=== PATIENT | female | born 1945 | race Caucasian/White ===

== ENCOUNTER → 2017-12-08 12:53 | Outpatient (CLI) | payer MEDICARE, OTHER, SELFPAY ==
--- NOTE | 2017-12-08 12:56 | BI_ITS ---
MAMMOGRAPHY - BILATERAL SCREENING REASON FOR EXAM: Female, 72 years old. Routine annual screening examination. PERTINENT HISTORY: Non-contributory. TECHNIQUE: Digital bilateral breast jimy (3D mammographic acquisition) in the CC and MLO projections. 2-D mediolateral oblique (MLO) and craniocaudad (CC) views of both breasts were obtained. CAD: Full Field Digital Mammography with Computer Added Detection was performed. COMPARISON: Comparison is made with prior study dated February 28, 2015 and November 14, 2013. FINDINGS: Breast Composition: The breasts are heterogeneously dense, which may obscure small masses. There are no dominant masses or suspicious calcifications. No other significant abnormalities are identified. There has been no significant change since the prior study. BI/SCREENING MAMM (CAD), BILAT IMPRESSION: Stable bilateral screening mammogram. Yearly follow-up mammogram recommended. (A) ASSESSMENT CATEGORY: BIRADS Category 1: Negative. A letter regarding these results will be sent to the patient by the facility within 30 days. Approximately 10% of breast cancers are not detected by mammography. A normal mammogram should not delay biopsy of a clinically suspicious abnormality. [id number] Electronically Signed: Adelso Busby MD at 15:38 EDT Tel [phone], Service support ,
--- NOTE | 2017-12-08 13:16 | BD_ITS ---
STUDY: DUAL ENERGY X-RAY ABSORPTIOMETRY / DXA REASON FOR EXAM: Female, 72 years old. The patient is postmenopausal. TECHNIQUE: Bone Mineral Density (BMD) measurements of lumbar spine and bilateral hips were obtained. COMPARISON: Comparison is made with prior study dated June 11, 2009. FINDINGS: Lumbar Spine (L1-L4): g/cm2 (1.103) / T-score (-0.6) / Z-score (1.1) Findings are suggestive of normal bone density with a low fracture risk. Left Femur Total: g/cm2 (0.799) / T-score (-1.7) / Z-score (-0.1) Left Femoral Neck: g/cm2 (0.740) / T-score (-2.1) / Z-score (-0.4) Right Femur Total: g/cm2 (0.814) / T-score (-1.5) / Z-score (0.0) Right Femoral Neck: g/cm2 (0.714) / T-score (-2.3) / Z-score (-0.6) The T-Scores on the most recent prior examination were: Lumbar Spine (L1-L4): There has been worsening of bone density since the previous examination. Left Femur Total: which represents a worsening of 8.9%. Right Femur Total: which represents a worsening of 6.1%. BD/DXA BONE DENS W/VERT FX ASMT IMPRESSION: The patient is considered osteopenic as outlined below according to World Harsh Organization (WHO) criteria with a moderate fracture risk. There has been worsening of bone density since the previous examination. Reference Information: The T-score is the number of standard deviations above or below the standard which is normal for young adults at their peak bone mineral density. The World Health Organization (WHO) interprets the T-scores as follows: Above -1 Normal bone density Between -1 and -2.5 Osteopenia Equal to / or below -2.5 Osteoporosis As a practical clinical guideline, osteopenia may be graded as follows: Mild -1 through -1.5 Moderate -1.6 through -2.0 Severe -2.1 through -2.4 The Z-score is the number of standard deviations above or below age-matched controls. A Z-score of less than -1.5 would be considered abnormal. References: 1. NIH Osteoporosis and Related Bone Diseases http://www.osteo.org 2. International Society for Clinical Densitometry http://www.iscd.org 3. National Osteoporosis Foundation http://www.nof.org Electronically Signed: Adelso Busby MD at 12:11 EDT Tel [phone], Service support ,
== END ==
PROVIDERS: Family Provider Family Medicine Geriatric Medicine; PCP Family Medicine Geriatric Medicine; Visit Provider Family Medicine Geriatric Medicine
DX: Z12.31 Encounter for screening mammogram for malignant neoplasm of breast (principal); Z78.0 Asymptomatic menopausal state; M48.50XA Collapsed vertebra, not elsewhere classified, site unspecified, initial encounter for fracture; M85.80 Other specified disorders of bone density and structure, unspecified site
CPT/HCPCS: 77063; 77067; 77085

== ENCOUNTER → 2018-03-22 15:06 | Outpatient (CLI) | payer MEDICARE, OTHER, SELFPAY ==
--- NOTE | 2018-03-22 15:15 | RAD_ITS ---
STUDY: X-RAY - LEFT KNEE REASON FOR EXAM: Female, 73 years old. Chronic left knee pain TECHNIQUE: 4 view(s) of the knee. COMPARISON: None. FINDINGS: Normal visualized distal femur. Normal visualized proximal tibia and fibula. Normal proximal tibiofibular articulation. Minimal narrowing of the medial femorotibial compartment. Normal lateral femorotibial compartment. Normal patellofemoral articulation. There is a soft tissue prominence in the suprapatellar region suggesting a small volume joint effusion. The soft tissue structures are unremarkable. RAD/Knee 4 or More Views IMPRESSION: Minimal degenerative changes and mild effusion. Electronically Signed: Karolina Romero MD at 7:57 EDT , Service support ,
== END ==
PROVIDERS: Family Provider Family Medicine Geriatric Medicine; PCP Family Medicine Geriatric Medicine; Visit Provider Family Medicine Geriatric Medicine
DX: M25.562 Pain in left knee (principal); G89.29 Other chronic pain
CPT/HCPCS: 73564

== ENCOUNTER → 2018-09-11 16:30 | Outpatient (CLI) | payer MEDICARE, OTHER, SELFPAY | PROVIDERS: Family Provider Family Medicine Geriatric Medicine; PCP Family Medicine Geriatric Medicine; Referring Provider Family Medicine Geriatric Medicine; Visit Provider Family Medicine Geriatric Medicine | DX: R69 Illness, unspecified (principal) ==

== ENCOUNTER → 2018-09-29 11:24 | Outpatient (CLI) | payer MEDICARE, OTHER, SELFPAY ==
[2018-09-29 13:12] LABS: Absolute Lymphocyte Count 1.91 X10^3/ul (0.83-4.51); Absolute Neutrophil Count 3.7 X10^3/uL (2.0-7.7); Basophil# 0.02 X10^3/uL; Basophil% 0.3 % (0-1); Eosinophil# 0.11 X10^3/uL; Eosinophils% 1.7 % (0-5); Hematocrit 42.6 % (37-47); Hemoglobin 13.9 g/dl (12.0-15.0); Lymphocyte # 1.91 X10^3/ul (4.0); Lymphocyte % 30.1 % (19-41); Mean Corp Hgb Conc 32.6 g/gl (32-36); Mean Corpuscular Hgb 29.5 pg (27.0-32.0); Mean Corpuscular Volume 90.4 fL (81-99); Monocyte# 0.62 X10^3/uL; Monocyte% 9.8 % (0-10); Neutrophil # 3.68 X10^3/uL (2.7-7.7); Neutrophil % 57.9 % (47-70); POSITIVE COUNT NO; POSITIVE DIFFERENTIAL NO; POSITIVE MORPHOLOGY NO; Platelet Count 224 K/mm3 (150-450); RBC Distribution Width CV 14.4 % (11.6-14.6); RBC Distribution Width SD 47.5 fl (35.1-43.9); Red Blood Count 4.71 M/mm3 (4.2-5.4); White Blood Count 6.4 K/mm3 (4.4-11.0)
[2018-09-29 13:26] LABS: AST(SGOT) 37 U/L (15-37); Alanine Aminotransfer ALT/SGPT 54 U/L (13-56); Albumin, Serum 3.3 g/dL (3.2-5.0); Alkaline Phosphatase 95 U/L (45-117); Anion Gap 9 (5-15); BUN 16 mg/dL (7-18); BUN/Creat Ratio 19.6 RATIO (10-20); Calcium,Total 8.6 mg/dL (8.5-10.1); Chloride 110 mmol/L (98-107); Creatinine, Serum 0.82 mg/dL (0.55-1.02); EST Glomerular Filtration Rate 73 mL/min (>60); Est Glom Filt Rate - Afr Amer 88 mL/min (>60); Globulin 3.4 g/dL (2.2-4.2); Glucose 83 mg/dL (74-106); Protein, Total 6.7 g/dL (6.4-8.2); Sodium Level 143 mmol/L (136-145); Thyroid Stim Hormone (TSH) 1.41 uIU/mL (0.358-3.74)
== END ==
PROVIDERS: Family Provider Family Medicine Geriatric Medicine; PCP Family Medicine Geriatric Medicine; Visit Provider Family Medicine Geriatric Medicine
DX: I10 Essential (primary) hypertension (principal); E55.9 Vitamin D deficiency, unspecified
CPT/HCPCS: 36415; 80053; 82306; 84443; 85025

== ENCOUNTER → 2019-06-27 10:50 | Outpatient (CLI) | payer MEDICARE, OTHER, SELFPAY ==
[2019-06-27 12:51] LABS: Absolute Lymphocyte Count 1.34 X10^3/uL (0.83-4.51); Absolute Neutrophil Count 3.9 X10^3/uL (2.0-7.7); Basophil# 0.02 X10^3/uL; Basophil% 0.3 % (0-1); Eosinophil# 0.08 X10^3/uL; Eosinophils% 1.4 % (0-5); Hematocrit 42.6 % (37-47); Hemoglobin 13.6 g/dL (12.0-15.0); Lymphocyte # 1.34 X10^3/ul (4.0); Lymphocyte % 22.6 % (19-41); Mean Corp Hgb Conc 31.9 g/dL (32-36); Mean Corpuscular Hgb 29.4 pg (27.0-32.0); Mean Platelet Vol. 10.1 fl (6.2-12.0); Monocyte# 0.59 X10^3/uL; NRBC Flagged by Analyzer 0 % (0-5); Neutrophil # 3.88 X10^3/uL (2.7-7.7); Neutrophil % 65.5 % (47-70); Platelet Count 257 K/mm3 (150-450); RBC Distribution Width CV 13.8 % (11.6-14.6); RBC Distribution Width SD 46.3 fl (35.1-43.9); Red Blood Count 4.63 M/mm3 (4.2-5.4); White Blood Count 5.9 K/mm3 (4.4-11.0)
[2019-06-27 12:59] LABS: Prothrombin Time (Protime)PT. 13.3 SECONDS (11.7-14.9)
== END ==
PROVIDERS: Family Provider Family Medicine Geriatric Medicine; PCP Family Medicine Geriatric Medicine; Visit Provider Family Medicine Geriatric Medicine
DX: N39.0 Urinary tract infection, site not specified (principal); D64.9 Anemia, unspecified; R23.3 Spontaneous ecchymoses
CPT/HCPCS: 36415; 85025; 85610; 87086; 87088; 87186

== ENCOUNTER → 2019-07-23 17:37 | Outpatient (CLI) | payer MEDICARE, OTHER, SELFPAY | PROVIDERS: Family Provider Family Medicine Geriatric Medicine; PCP Family Medicine Geriatric Medicine; Referring Provider Family Medicine Geriatric Medicine; Visit Provider Family Medicine Geriatric Medicine | DX: R68.83 Chills (without fever) (principal) | CPT/HCPCS: 87633 ==

== ENCOUNTER → 2019-10-01 10:57 | Outpatient (CLI) | payer MEDICARE, SELFPAY ==
[2019-10-01 12:14] LABS: Absolute Lymphocyte Count 1.43 X10^3/uL (0.83-4.51); Absolute Neutrophil Count 3.6 X10^3/uL (2.0-7.7); Basophil# 0.02 X10^3/uL; Basophil% 0.3 % (0-1); Eosinophils% 1.7 % (0-5); Hematocrit 43.4 % (37-47); Lymphocyte # 1.43 X10^3/ul (4.0); Lymphocyte % 24.5 % (19-41); Mean Corp Hgb Conc 32.3 g/dL (32-36); Mean Corpuscular Hgb 29.1 pg (27.0-32.0); Mean Corpuscular Volume 90.2 fL (81-99); Mean Platelet Vol. 9.7 fl (6.2-12.0); Monocyte# 0.68 X10^3/uL; Monocyte% 11.6 % (0-10); NRBC Flagged by Analyzer 0 % (0-5); Neutrophil # 3.59 X10^3/uL (2.7-7.7); Neutrophil % 61.6 % (47-70); Platelet Count 268 K/mm3 (150-450); RBC Distribution Width CV 14.2 % (11.6-14.6); RBC Distribution Width SD 47.1 fl (35.1-43.9); Red Blood Count 4.81 M/mm3 (4.2-5.4); White Blood Count 5.8 K/mm3 (4.4-11.0)
[2019-10-01 12:52] LABS: Vitamin D,25 Hydroxy 59.9 ng/mL (29.95-100.01)
[2019-10-01 13:25] LABS: AST(SGOT) 30 U/L (15-37); Alanine Aminotransfer ALT/SGPT 43 U/L (13-56); Albumin, Serum 3.4 g/dL (3.2-5.0); Alkaline Phosphatase 82 U/L (45-117); Anion Gap 5 (5-15); BUN 17 mg/dL (7-18); BUN/Creat Ratio 18.3 RATIO (10-20); Calcium,Total 9.2 mg/dL (8.5-10.1); Chloride 112 mmol/L (98-107); Creatinine, Serum 0.93 mg/dL (0.55-1.02); EST Glomerular Filtration Rate 63 mL/min (>60); Est Glom Filt Rate - Afr Amer 76 mL/min (>60); Globulin 3.3 g/dL (2.2-4.2); Glucose 59 mg/dL (74-106); Potassium 4.3 mmol/L (3.5-5.1); Protein, Total 6.7 g/dL (6.4-8.2); Sodium Level 144 mmol/L (136-145); Thyroid Stim Hormone (TSH) 1.69 uIU/mL (0.358-3.74)
== END ==
PROVIDERS: PCP Family Medicine Geriatric Medicine; Visit Provider Family Medicine Geriatric Medicine
DX: E55.9 Vitamin D deficiency, unspecified (principal); I10 Essential (primary) hypertension; N39.0 Urinary tract infection, site not specified
CPT/HCPCS: 36415; 80053; 82306; 84443; 85025; 87086; 87088

== ENCOUNTER → 2019-10-31 11:33 | Outpatient (CLI) | payer MEDICARE, SELFPAY ==
[2019-10-31 14:18] LABS: Anion Gap 3 (5-15); BUN 14 mg/dL (7-18); BUN/Creat Ratio 17.1 RATIO (10-20); Calcium,Total 9.2 mg/dL (8.5-10.1); Chloride 110 mmol/L (98-107); Creatinine, Serum 0.82 mg/dL (0.55-1.02); EST Glomerular Filtration Rate 73 mL/min (>60); Est Glom Filt Rate - Afr Amer 88 mL/min (>60); Glucose 70 mg/dL (74-106); Sodium Level 143 mmol/L (136-145)
== END ==
PROVIDERS: PCP Family Medicine Geriatric Medicine; Referring Provider Urology; Visit Provider Urology
DX: N39.44 Nocturnal enuresis (principal)
CPT/HCPCS: 36415; 80048

== ENCOUNTER → 2020-01-23 11:21 | Outpatient (CLI) | payer MEDICARE, SELFPAY ==
--- NOTE | 2020-01-23 11:25 | BI_ITS ---
MAMMOGRAPHY - BILATERAL SCREENING REASON FOR EXAM: Female, 75 years old. Routine annual screening examination. PERTINENT HISTORY: BILAT SCREENING - NO FAM HX - NO PREV SURG''S - RT INVERTED NIPPLE - ALWAYS TECHNIQUE: Digital bilateral breast brenda (3D mammographic acquisition) in the CC and MLO projections. 2-D mediolateral oblique (MLO) and craniocaudad (CC) views of both breasts were obtained. CAD: Full Field Digital Mammography with Computer Added Detection was performed. COMPARISON: 2017 and February 28, 2015 FINDINGS: Breast Composition: The breasts are heterogeneously dense, which may obscure small masses. There are no dominant masses or suspicious calcifications. No other significant abnormalities are identified. BI/SCREEN MAMM (CAD) W/BRENDA BILAT IMPRESSION: Stable bilateral screening mammogram. Yearly follow-up mammogram recommended. (A) ASSESSMENT CATEGORY: BIRADS Category 2: Benign. A letter regarding these results will be sent to the patient by the facility within 30 days. Approximately 10% of breast cancers are not detected by mammography. A normal mammogram should not delay biopsy of a clinically suspicious abnormality. [id number] Electronically Signed: Toni Granado, at 16:00 EDT Tel , Service support ,
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
== END ==
PROVIDERS: PCP Family Medicine Geriatric Medicine; Referring Provider Family Medicine Geriatric Medicine; Visit Provider Family Medicine Geriatric Medicine
DX: Z12.31 Encounter for screening mammogram for malignant neoplasm of breast (principal); Z78.0 Asymptomatic menopausal state
CPT/HCPCS: 77063; 77067; 77080

== ENCOUNTER → 2020-10-02 12:03 | Outpatient (CLI) | payer MEDICARE, SELFPAY ==
[2020-10-02 12:31] LABS: Absolute Lymphocyte Count 1.69 X10^3/uL (0.83-4.51); Absolute Neutrophil Count 3.6 X10^3/uL (2.0-7.7); Basophil# 0.03 X10^3/uL; Basophil% 0.5 % (0-1); Eosinophil# 0.19 X10^3/uL; Eosinophils% 3.1 % (0-5); Hematocrit 42.6 % (37-47); Hemoglobin 13.6 g/dL (12.0-15.0); Lymphocyte # 1.69 X10^3/ul (4.0); Lymphocyte % 27.6 % (19-41); Mean Corp Hgb Conc 31.9 g/dL (32-36); Mean Corpuscular Hgb 27.5 pg (27.0-32.0); Mean Corpuscular Volume 86.1 fL (81-99); Mean Platelet Vol. 10.2 fl (6.2-12.0); Monocyte# 0.63 X10^3/uL; Monocyte% 10.3 % (0-10); NRBC Flagged by Analyzer 0 % (0-5); Neutrophil # 3.58 X10^3/uL (2.7-7.7); Neutrophil % 58.3 % (47-70); Platelet Count 258 K/mm3 (150-450); RBC Distribution Width CV 14.6 % (11.6-14.6); RBC Distribution Width SD 45.7 fl (35.1-43.9); Red Blood Count 4.95 M/mm3 (4.2-5.4); White Blood Count 6.1 K/mm3 (4.4-11.0)
[2020-10-02 13:16] LABS: Vitamin D,25 Hydroxy 42.5 ng/mL
[2020-10-02 13:28] LABS: AST(SGOT) 24 U/L (15-37); Alanine Aminotransfer ALT/SGPT 29 U/L (13-56); Albumin, Serum 3.4 g/dL (3.2-5.0); Alkaline Phosphatase 115 U/L (45-117); Anion Gap 7 (5-15); BUN 18 mg/dL (7-18); BUN/Creat Ratio 21.1 RATIO (10-20); Calcium,Total 8.6 mg/dL (8.5-10.1); Chloride 111 mmol/L (98-107); Cholesterol 159 mg/dL (200); Creatinine, Serum 0.86 mg/dL (0.55-1.02); EST Glomerular Filtration Rate 69 mL/min (>60); Est Glom Filt Rate - Afr Amer 83 mL/min (>60); Globulin 3.3 g/dL (2.2-4.2); Glucose 90 mg/dL (74-106); High Density Lipoprotein 75 mg/dL; Potassium 3.9 mmol/L (3.5-5.1); Protein, Total 6.7 g/dL (6.4-8.2); Sodium Level 142 mmol/L (136-145); Thyroid Stim Hormone (TSH) 2.55 uIU/mL (0.358-3.74); Triglycerides 69 mg/dL; Very Low Density Lipoprotein 14 mg/dL (5-40)
== END ==
PROVIDERS: PCP Family Medicine Geriatric Medicine; Visit Provider Family Medicine Geriatric Medicine
DX: E55.9 Vitamin D deficiency, unspecified (principal); E78.5 Hyperlipidemia, unspecified; I10 Essential (primary) hypertension
CPT/HCPCS: 36415; 80053; 80061; 82306; 84443; 85025

== ENCOUNTER → 2020-10-06 11:23 | Outpatient (CLI) | payer MEDICARE, SELFPAY ==
--- NOTE | 2020-10-06 11:27 | RAD_ITS ---
STUDY: X-RAY - LEFT KNEE REASON FOR EXAM: Chronic left knee pain. TECHNIQUE: 3 view(s) of the knee. COMPARISON: Radiographs 03/22/2018. FINDINGS: Normal visualized distal femur. Normal visualized proximal tibia and fibula. Normal proximal tibiofibular articulation. There is moderate joint space narrowing of the medial femorotibial compartment, increased since the prior study. Normal lateral femorotibial compartment. Normal patellofemoral articulation. The soft tissue structures are unremarkable. RAD/Knee 3 Views IMPRESSION: Arthrosis of the medial femorotibial compartment. Electronically Signed: Evans Calhoun MD at 11:48 EST Tel , Service support ,
== END ==
PROVIDERS: PCP Family Medicine Geriatric Medicine; Referring Provider Family Medicine Geriatric Medicine; Visit Provider Family Medicine Geriatric Medicine
DX: M17.12 Unilateral primary osteoarthritis, left knee (principal); G89.29 Other chronic pain
CPT/HCPCS: 73562

== ENCOUNTER → 2020-11-03 | Outpatient (CLI) | payer MEDICARE, SELFPAY | END | disposition home or self-care (01) | LOC: LABSPEC 16:00 | PROVIDERS: PCP Family Medicine Geriatric Medicine; Referring Provider Family Medicine Geriatric Medicine; Visit Provider Family Medicine Geriatric Medicine | DX: R68.83 Chills (without fever) (principal) | CPT/HCPCS: 87633; 87635; C9803; U0005; U0003 ==

== ENCOUNTER 2021-10-05 11:25 | Outpatient (CLI) | payer MEDICARE, SELFPAY ==
[2021-10-05 12:26] LABS: Absolute Lymphocyte Count 1.22 X10^3/uL (0.83-4.51); Absolute Neutrophil Count 2.7 X10^3/uL (2.0-7.7); Basophil# 0.02 X10^3/uL; Basophil% 0.4 % (0-1); Eosinophil# 0.14 X10^3/uL; Eosinophils% 3.1 % (0-5); Hemoglobin 13.1 g/dL (12.0-15.0); Lymphocyte # 1.22 X10^3/ul (0.83-4.51); Lymphocyte % 26.9 % (19-41); Mean Corpuscular Hgb 27.8 pg (27.0-32.0); Monocyte# 0.48 X10^3/uL; Monocyte% 10.6 % (0-10); NRBC Flagged by Analyzer 0 % (0-5); Neutrophil # 2.66 X10^3/uL (2.7-7.7); Neutrophil % 58.8 % (47-70); Platelet Count 265 K/mm3 (150-450); RBC Distribution Width CV 14.4 % (11.6-14.6); RBC Distribution Width SD 45.9 fl (35.1-43.9); Red Blood Count 4.71 M/mm3 (4.2-5.4); White Blood Count 4.5 K/mm3 (4.4-11.0)
[2021-10-05 12:27] LABS: Vitamin D,25 Hydroxy 33.4 ng/mL
[2021-10-05 12:40] LABS: AST(SGOT) 17 U/L (15-37); Alanine Aminotransfer ALT/SGPT 24 U/L (13-56); Albumin, Serum 3.1 g/dL (3.2-5.0); Alkaline Phosphatase 93 U/L (45-117); Anion Gap 5 (5-15); BUN 15 mg/dL (7-18); BUN/Creat Ratio 17.7 RATIO (10-20); Calcium,Total 8.6 mg/dL (8.5-10.1); Chloride 111 mmol/L (98-107); Cholesterol 163 mg/dL (200); Creatinine, Serum 0.85 mg/dL (0.55-1.02); EST Glomerular Filtration Rate 70 mL/min (>60); Est Glom Filt Rate - Afr Amer 84 mL/min (>60); Globulin 3.2 g/dL (2.2-4.2); Glucose 86 mg/dL (74-106); High Density Lipoprotein 66 mg/dL; Potassium 3.7 mmol/L (3.5-5.1); Protein, Total 6.3 g/dL (6.4-8.2); Sodium Level 141 mmol/L (136-145); Thyroid Stim Hormone (TSH) 1.94 uIU/mL (0.358-3.74); Triglycerides 92 mg/dL; Very Low Density Lipoprotein 18 mg/dL (5-40)
== END 2021-10-05 23:59 | disposition short-term general hospital (02) ==
LOC: POLAB3 11:26
PROVIDERS: PCP Family Medicine Geriatric Medicine; Visit Provider Family Medicine Geriatric Medicine
DX: E55.9 Vitamin D deficiency, unspecified (principal); E78.5 Hyperlipidemia, unspecified; I10 Essential (primary) hypertension
CPT/HCPCS: 36415; 80053; 80061; 82306; 84443; 85025

== ENCOUNTER → 2022-10-11 | Outpatient (CLI) | payer MEDICARE, SELFPAY ==
[2022-10-11 13:27] LABS: Absolute Lymphocyte Count 1.72 X10^3/uL (0.83-4.51); Absolute Neutrophil Count 3.1 X10^3/uL (2.0-7.7); Basophil# 0.04 X10^3/uL; Basophil% 0.7 % (0-1); Eosinophil# 0.12 X10^3/uL; Eosinophils% 2.2 % (0-5); Hematocrit 45.8 % (37-47); Hemoglobin 14.8 g/dL (12.0-15.0); Lymphocyte # 1.72 X10^3/ul (0.83-4.51); Lymphocyte % 31.4 % (19-41); Mean Corp Hgb Conc 32.3 g/dL (32-36); Mean Corpuscular Hgb 29.1 pg (27.0-32.0); Mean Platelet Vol. 10.4 fl (6.2-12.0); Monocyte# 0.51 X10^3/uL; Monocyte% 9.3 % (0-10); NRBC Flagged by Analyzer 0 % (0-5); Neutrophil # 3.08 X10^3/uL (2.7-7.7); Neutrophil % 56.2 % (47-70); Platelet Count 245 K/mm3 (150-450); RBC Distribution Width CV 13.2 % (11.6-14.6); RBC Distribution Width SD 43.7 fl (35.1-43.9); Red Blood Count 5.09 M/mm3 (4.2-5.4); White Blood Count 5.5 K/mm3 (4.4-11.0)
[2022-10-11 14:20] LABS: ALB/GLOB Ratio 1.1 RATIO (0.9-2.4); AST(SGOT) 24 U/L (15-37); Alanine Aminotransfer ALT/SGPT 26 U/L (13-56); Albumin, Serum 3.5 g/dL (3.2-5.0); Alkaline Phosphatase 91 U/L (45-117); Anion Gap 8 (5-15); BUN 18 mg/dL (7-18); BUN/Creat Ratio 15.9 RATIO (10-20); Calcium,Total 9.3 mg/dL (8.5-10.1); Chloride 110 mmol/L (98-107); Cholesterol 193 mg/dL (200); Creatinine, Serum 1.13 mg/dL (0.55-1.02); EST Glomerular Filtration Rate 50 mL/min (>60); Est Glom Filt Rate - Afr Amer 60 mL/min (>60); Globulin 3.3 g/dL (2.2-4.2); Glucose 88 mg/dL (74-106); High Density Lipoprotein 76 mg/dL; Potassium 3.8 mmol/L (3.5-5.1); Protein, Total 6.8 g/dL (6.4-8.2); Sodium Level 145 mmol/L (136-145); Thyroid Stim Hormone (TSH) 2.68 uIU/mL (0.358-3.74); Triglycerides 118 mg/dL; Very Low Density Lipoprotein 24 mg/dL (5-40)
== END | disposition home or self-care (01) ==
LOC: POLAB3 10:54
PROVIDERS: PCP Family Medicine Geriatric Medicine; Visit Provider Family Medicine Geriatric Medicine
DX: E55.9 Vitamin D deficiency, unspecified (principal); I10 Essential (primary) hypertension
CPT/HCPCS: 36415; 80053; 80061; 82306; 84443; 85025

== ENCOUNTER 2023-01-13 05:50 | Day surgery (SDC) | payer MEDICARE, SELFPAY ==
[2023-01-13] VITALS (7 sets, daily range): BP systolic 90–158; BP diastolic 50–97; PULSE 65–76; RESP 16–18; TEMP 36.2–36.5; O2SAT 94–98; BMI 28.8
[2023-01-13] MEDS: Vancomycin IV 1,000 MG/200 ML BAG 200 MG IV (06:43)
[2023-01-13] MEDS: Lactated Ringers 1,000 ML 15 ML IV (07:05)
--- NOTE | 2023-01-13 07:21 | RAD_ITS ---
STUDY: X-RAY - PELVIS REASON FOR EXAM: Female, 77 years old. PLACEMENT AXONICS STAGE 1 2 TECHNIQUE: 4 C-arm views of the pelvis were obtained during placement of pedicle stimulator. 32.8 seconds fluoroscopy time. COMPARISON: None. FINDINGS: Fluoroscopic guidance provided for placement of sacral stimulator leads. Correlate with procedure note. Electronically Signed: Marcell Díaz MD at 20:28 EDT , RAD/Pelvis 1 or 2 Views IMPRESSION: undefined
[2023-01-13] MEDS: Lidocaine 1% /Epi 1:100 (20ml) 20 ML Vial (08:00)
--- NOTE | 2023-01-13 08:41 | EX.PCM.DISCH ---
Discharge Instructions Diet Discharge Diet: No restrictions Activity Discharge Activity: Return to Normal Activity and May Shower (on Tuesday morning) May resume sexual activity in: 2 weeks Dressing / Incision Call your doctor if your incision/area has: Continuous Slow Oozing, Sudden Increased Bleeding, Increased Pain/ Swelling, Increased Redness, Foul Smelling Discharge and Swelling at the incision site Call your doctor if you observe: Fever of 101 or Higher, Inability to urinate and Inability to have a bowel movement Suture Line Care: Avoid Pulling/Pushing and Avoid Pinching/Bending Remove Dressing in: do not remove dressing Follow Up Care Please Follow Up With: Jasmin Cardona MD When: in 2-4 weeks, call for appt Test Results: Test results from this visit will be discussed in further detail at your follow-up appointment, if applicable. Discharge Plan Admission Attending Provider: Jasmin Cardona Primary Care Provider: Kirt Devi Chi Discharge Orders/Prescriptions Prescriptions: New oxycodone-acetaminophen [Percocet] 5-325 mg tablet 1 tab PO Q8H PRN (Reason: pain) 3 Days Qty: 10 0RF cephalexin [cephalexin] 500 mg capsule 500 mg PO Q12 3 Days Qty: 6 0RF Continued atorvastatin 40 mg tablet 40 mg PO QHS Label Comments: TAKE 1 TABLET BY MOUTH ONCE DAILY lisinopril 20 mg tablet 20 mg PO BID Label Comments: TAKE 1 TABLET BY MOUTH TWICE DAILY tramadol 50 mg tablet 50 mg PO PRN PRN (Reason: Pain) Label Comments: TAKE 1 TABLET BY MOUTH THREE TIMES DAILY FOR LOWER BACK PAIN FOR 30 DAYS pantoprazole 40 mg tablet,delayed release (DR/EC) 40 mg PO BID Label Comments: TAKE 1 TABLET BY MOUTH TWICE DAILY omega-3 fatty acids Capsule 1,500 mg PO DAILY metoprolol tartrate 25 mg tablet 25 mg PO BID Label Comments: TAKE 1 TABLET BY MOUTH TWICE DAILY duloxetine 60 mg capsule,delayed release(DR/EC) 60 mg PO DAILY Label Comments: TAKE 1 CAPSULE BY MOUTH ONCE DAILY cholecalciferol (vitamin D3) [Vitamin D3] 25 mcg (1,000 unit) Tablet,Chewable 25 mcg PO DAILY Probiotic 10 billion cell Capsule 10,000 mmu cells PO DAILY aspirin 81 mg Capsule 81 mg PO DAILY Centrum Adults 12 mcg Tablet,Chewable 1 tab PO DAILY Referrals / Follow Up: Kirt Devi Chi, MD [Primary Care Provider] - Disposition Disposition (needs filled in before D/C Order can be placed): Home, Self Care
--- NOTE | 2023-01-13 08:44 | PCM.OPRPT ---
Report of Operation Date of Procedure: 01/13/23 Pre-Operative Diagnosis: Urge incontinence, nocturnal enuresis Post-Operative Diagnosis: Same Surgery/Procedure Performed:: Removal InterStim lead and battery, Axonics stage I and II Surgeon: Jasmin Cardona Type of Anesthesia: MAC Estimated Blood Loss (mL): 5 cc Description of Procedure: The patient is a 77-year-old female who has had an InterStim for many years and the battery has . She now presents for removal of the InterStim lead and battery and Axonics stage I and II. Informed consent was obtained. The patient was taken to the operating room and placed in a prone position on the operating room table. Anesthesia monitored the head, neck, airway, IV access and vital signs throughout the case. The patient was appropriately padded and secured to the table. Once anesthesia was appropriately administered, she was prepped and draped in usual sterile fashion. The existing incisions over the right pocket site and lead insertion sites were infiltrated with lidocaine with epinephrine. The incisions were reopened first at the pocket site with a knife followed by Bovie cautery. The battery was grasped and brought into the operative field. Hemostat was placed on the lead which was then cut and the battery was removed from the field. Using traction on the lead, an incision was made over the lead insertion site and the lead was identified and grasped with hemostats, pulling it from the pocket site into the insertion site. Using gentle traction with hemostats, the lead in its entirety was removed. A needle was then inserted into the S3 foramen as visualized on fluoroscopy. On stimulation there was didi response and toe flexion. At this time the guidewire was inserted followed by the dilator and then the finally the lead itself. The lead had good response on all 4 sections. There was no evidence of S2 stimulation. At this time the dilator was then removed and images were taken both lateral and AP revealing good positioning of the lead. The lead was then tunneled into the pocket site. Both areas were irrigated. The lead was dried and inserted into the battery and secured using the torque wrench. The battery was then placed into correct position and the pocket site and there were no impedances identified. The pocket was closed in 2 layers with 3-0 Vicryl followed by 4-0 subcuticular Monocryl and then skin glue. The same closure was performed on the lead insertion site. The patient was then awakened and taken to the recovery room in good condition. There were no complications during this procedure. Grafts/Implants Used: Axonics lead and battery Complications None Admit VTE Documentation VTE Present on Admission: No VTE Mechan Device Prophylaxis: None VTE Pharm Prophylaxis ordered?: No Reason prophylaxis not ordered:: Treatment Not Indicated
== END 2023-01-13 10:05 | disposition home or self-care (01) ==
LOC: SDC 05:59 → AC 05:59
PROVIDERS: PCP Family Medicine Geriatric Medicine; Referring Provider Urology; Visit Provider Urology
PROC: (CPT 64595; principal; 2023-01-13 07:20)
DX: Z45.42 Encounter for adjustment and management of neurostimulator (principal); I50.9 Heart failure, unspecified; I11.0 Hypertensive heart disease with heart failure; N39.41 Urge incontinence; N39.44 Nocturnal enuresis; I25.2 Old myocardial infarction; E78.00 Pure hypercholesterolemia, unspecified; K21.9 Gastro-esophageal reflux disease without esophagitis; Z86.73 Personal history of transient ischemic attack (TIA), and cerebral infarction without residual deficits; Z79.82 Long term (current) use of aspirin; Z79.899 Other long term (current) drug therapy; Z95.5 Presence of coronary angioplasty implant and graft
CPT/HCPCS: 64595; 64585; 64561; 72170; 76000; J7120; J2405

== ENCOUNTER → 2023-02-23 | Outpatient (CLI) | payer MEDICARE, SELFPAY ==
--- NOTE | 2023-02-23 16:34 | CT_ITS ---
EXAM: CT Abdomen And Pelvis W/ Contrast Injection HISTORY: ABD PAIN DIARRHEA,VOMITTING TECHNIQUE: Routine protocol CT abdomen pelvis. IV Contrast: Oral and amp; IV Gastrografin and amp; 100mL Isovue-300 . Oral Contrast: with. Sagittal and coronal images were reconstructed. RADIATION DOSAGE (If Supplied By Facility): CTDIvol = ( 20.39 ) mGy, DLP = ( 902.21 ) mGycm Individualized dose optimization techniques were used for this CT. COMPARISON: None. LIMITATIONS: None. FINDINGS: LOWER CHEST: Lung bases are clear. Small hiatal hernia. LIVER: Tiny low-attenuation structure in the right lobe too small to characterize. GALLBLADDER/BILE DUCTS: Gallstones in the gallbladder. No adjacent inflammatory changes. PANCREAS: Unremarkable. SPLEEN: Unremarkable. ADRENAL GLANDS: Unremarkable. KIDNEYS / URETERS: Small cysts in the kidneys. No hydronephrosis. BOWEL / MESENTERY: Unremarkable. No bowel obstruction. APPENDIX: Not identified. No evidence of acute appendicitis. PERITONEUM: No free air. No free fluid. VESSELS: Abdominal aorta is normal caliber. RETROPERITONEUM: Unremarkable. REPRODUCTIVE ORGANS: Uterus not identified.. BLADDER: Minimally distended. ABDOMINAL WALL: Implanted device subcutaneous in the right gluteal region with electrodes extending presacral. BONES: Degenerative changes in the lumbar spine. Compression abnormality of L2 uncertain age likely old.. OTHER: None. CT/Abdomen/Pelvis WITH Contrast IMPRESSION: No acute findings. Cholelithiasis. No bowel obstruction. Small hiatal hernia. Electronically Signed: Malia Garcia MD at 19:51 EDT ,
[2023-02-23 17:18] LABS: Absolute Lymphocyte Count 1.35 X10^3/uL (0.83-4.51); Absolute Neutrophil Count 6.3 X10^3/uL (2.0-7.7); Basophil# 0.03 X10^3/uL; Basophil% 0.3 % (0-1); Eosinophil# 0.04 X10^3/uL; Eosinophils% 0.5 % (0-5); Hematocrit 50.5 % (37-47); Hemoglobin 16.4 g/dL (12.0-15.0); Lymphocyte # 1.35 X10^3/ul (0.83-4.51); Lymphocyte % 15.6 % (19-41); Mean Corp Hgb Conc 32.5 g/dL (32-36); Mean Corpuscular Hgb 29.6 pg (27.0-32.0); Mean Corpuscular Volume 91.2 fL (81-99); Mean Platelet Vol. 9.4 fl (6.2-12.0); Monocyte# 0.94 X10^3/uL; Monocyte% 10.9 % (0-10); NRBC Flagged by Analyzer 0 % (0-5); Neutrophil # 6.27 X10^3/uL (2.7-7.7); Neutrophil % 72.4 % (47-70); Platelet Count 283 K/mm3 (150-450); RBC Distribution Width CV 13.4 % (11.6-14.6); RBC Distribution Width SD 45.3 fl (35.1-43.9); Red Blood Count 5.54 M/mm3 (4.2-5.4); White Blood Count 8.7 K/mm3 (4.4-11.0)
[2023-02-23 18:22] LABS: AST(SGOT) 21 U/L (15-37); Alanine Aminotransfer ALT/SGPT 25 U/L (13-56); Albumin, Serum 3.9 g/dL (3.2-5.0); Alkaline Phosphatase 98 U/L (45-117); Amylase 83 U/L (25-115); Anion Gap 10 (5-15); BUN 19 mg/dL (7-18); BUN/Creat Ratio 16.4 RATIO (10-20); Calcium,Total 9.5 mg/dL (8.5-10.1); Chloride 105 mmol/L (98-107); Creatinine, Serum 1.16 mg/dL (0.55-1.02); EST Glomerular Filtration Rate 48 mL/min (>60); Est Glom Filt Rate - Afr Amer 58 mL/min (>60); Glucose 108 mg/dL (74-106); Lipase 28 U/L (13-75); Potassium 3.5 mmol/L (3.5-5.1); Protein, Total 7.9 g/dL (6.4-8.2); Sodium Level 142 mmol/L (136-145)
== END | disposition home or self-care (01) ==
PROVIDERS: PCP Family Medicine Geriatric Medicine; Referring Provider Family Medicine Geriatric Medicine; Visit Provider Family Medicine Geriatric Medicine
DX: R53.83 Other fatigue (principal); R10.9 Unspecified abdominal pain; R11.2 Nausea with vomiting, unspecified
CPT/HCPCS: 36415; 74177; 80053; 82150; 83690; 85025; 87086; 87088; Q9967

== ENCOUNTER → 2023-02-24 | Outpatient (CLI) | payer MEDICARE, SELFPAY ==
--- NOTE | 2023-02-24 12:32 | US_ITS ---
STUDY: ABDOMINAL ULTRASOUND - RIGHT UPPER QUADRANT REASON FOR VISIT: Female, 78 years old. ABDOMEN PAIN pain, abnl ct , colitis TECHNIQUE: Ultrasound evaluation of the right upper quadrant was performed with real-time and static rivero-scale imaging. TECHNICAL QUALITY: Adequate. COMPARISON: ct done yesterday FINDINGS: Liver: There is normal echogenicity of the liver. The bile ducts are within normal limits. There is hepatic color flow. The direction of portal flow is hepatopetal. There is no demonstrated mass lesion. Gallbladder: Normal distended gallbladder. The gallbladder wall measures 2.2 mm. There is a negative sonographic Garza''s sign. There is no pericholecystic fluid. There are multiple echogenic structures within the gallbladder, consistent with multiple gallstones. Common Bile Duct (C.B.D.): The common bile duct measures ( in mm): 3 Pancreas: It is not visualized. There is too much overlying bowel gas. Right Kidney: Normal size of the right kidney. The right kidney measures 9.6x4.3 cm. . Normal renal cortex. There is a cyst: 24mm. There is no right hydronephrosis. Aorta: It is not visualized. There is too much overlying bowel gas. . US/Abdomen Limited IMPRESSION: GALLSTONES Electronically Signed: Rodríguez Acuna MD at 14:34 EDT ,
== END | disposition home or self-care (01) ==
PROVIDERS: PCP Family Medicine Geriatric Medicine; Referring Provider Family Medicine Geriatric Medicine; Visit Provider Family Medicine Geriatric Medicine
DX: K52.9 Noninfective gastroenteritis and colitis, unspecified (principal)
CPT/HCPCS: 76705; 82274; 83630; 87177; 87209; 87493

== ENCOUNTER → 2023-02-24 | Outpatient (CLI) | payer MEDICARE, SELFPAY ==
[2023-03-04 14:00] LABS: Miscellaneous Lab Procedure E
== END | disposition home or self-care (01) ==
LOC: LABSPEC 09:40
PROVIDERS: PCP Family Medicine Geriatric Medicine; Referring Provider Family Medicine Geriatric Medicine; Visit Provider Family Medicine Geriatric Medicine
DX: R19.7 Diarrhea, unspecified (principal)
CPT/HCPCS: 82274; 83630; 87177; 87209; 87493

== ENCOUNTER → 2023-03-11 | Outpatient (CLI) | payer MEDICARE, SELFPAY ==
--- NOTE | 2023-03-11 09:40 | NM_ITS ---
Nuclear medicine HIDA scan Indication: Cholelithiasis abdominal pain COMPARISON STUDIES : NM - None. CR - Not available for review at this time. CT - Not available for review at this time. MR - Not available for review at this time. Technique: 5.6 mCi of technetium 99m labeled mebrofenin was injected intravenously followed by standard imaging. 1.4 mcg of CCK was injected intravenously for calculation of gallbladder ejection fraction. Findings: There is homogenous activity throughout the liver. Normal excretion of isotope into the proximal small bowel. Activity in the gallbladder is identified at 15 minutes. Gallbladder ejection fraction measures 21%. NM/Hepatobilliary Img w/Pharm Int IMPRESSION: 1. Normal filling of the gallbladder without evidence of acute cholecystitis or biliary obstruction. 2. A gallbladder ejection fraction calculated to be less than 35% following the administration of Cholecystokinin makes the probability of functional hepatobiliary disease (gallbladder and/or sphincter of Oddi dyskinesia) and/or organic hepatobiliary disease (chronic acalculous cholecystitis and/or cystic duct syndrome) to be high. (Danii Hunter et al, Journal of Nuclear Medicine 32:1695, 1991). Electronically Signed: Sarmad Mallory (Brooks), at 11:32 EDT ,
== END | disposition home or self-care (01) ==
PROVIDERS: PCP Family Medicine Geriatric Medicine; Referring Provider Family Medicine Geriatric Medicine; Visit Provider Family Medicine Geriatric Medicine
DX: K52.9 Noninfective gastroenteritis and colitis, unspecified (principal)
CPT/HCPCS: 78227; A9537; J2805

== ENCOUNTER → 2023-04-04 | Outpatient (CLI) | payer MEDICARE, SELFPAY ==
[2023-04-04 12:36] LABS: Absolute Lymphocyte Count 1.48 X10^3/uL (0.83-4.51); Absolute Neutrophil Count 2.8 X10^3/uL (2.0-7.7); Basophil# 0.04 X10^3/uL; Basophil% 0.8 % (0-1); Eosinophil# 0.17 X10^3/uL; Eosinophils% 3.4 % (0-5); Hematocrit 43.6 % (37-47); Hemoglobin 14.1 g/dL (12.0-15.0); Lymphocyte # 1.48 X10^3/ul (0.83-4.51); Lymphocyte % 29.6 % (19-41); Mean Corp Hgb Conc 32.3 g/dL (32-36); Mean Corpuscular Hgb 29.3 pg (27.0-32.0); Mean Corpuscular Volume 90.6 fL (81-99); Mean Platelet Vol. 10.4 fl (6.2-12.0); Monocyte# 0.49 X10^3/uL; Monocyte% 9.8 % (0-10); NRBC Flagged by Analyzer 0 % (0-5); Neutrophil # 2.81 X10^3/uL (2.7-7.7); Neutrophil % 56.2 % (47-70); Platelet Count 232 K/mm3 (150-450); RBC Distribution Width CV 13.2 % (11.6-14.6); RBC Distribution Width SD 43.8 fl (35.1-43.9); Red Blood Count 4.81 M/mm3 (4.2-5.4)
[2023-04-04 12:52] LABS: Vitamin D,25 Hydroxy 44.8 ng/mL
[2023-04-04 14:23] LABS: ALB/GLOB Ratio 0.9 RATIO (0.9-2.4); AST(SGOT) 26 U/L (15-37); Alanine Aminotransfer ALT/SGPT 29 U/L (13-56); Albumin, Serum 3.2 g/dL (3.2-5.0); Alkaline Phosphatase 91 U/L (45-117); Anion Gap 7 (5-15); BUN 12 mg/dL (7-18); BUN/Creat Ratio 12.8 RATIO (10-20); Chloride 110 mmol/L (98-107); Cholesterol 177 mg/dL (200); Creatinine, Serum 0.94 mg/dL (0.55-1.02); EST Glomerular Filtration Rate 62 mL/min (>60); Est Glom Filt Rate - Afr Amer 74 mL/min (>60); Globulin 3.6 g/dL (2.2-4.2); Glucose 81 mg/dL (74-106); High Density Lipoprotein 78 mg/dL; Potassium 3.5 mmol/L (3.5-5.1); Protein, Total 6.8 g/dL (6.4-8.2); Sodium Level 142 mmol/L (136-145); Thyroid Stim Hormone (TSH) 2.69 uIU/mL (0.358-3.74); Triglycerides 85 mg/dL; Very Low Density Lipoprotein 17 mg/dL (5-40)
== END | disposition home or self-care (01) ==
PROVIDERS: PCP Family Medicine Geriatric Medicine; Visit Provider Family Medicine Geriatric Medicine
DX: I10 Essential (primary) hypertension (principal); E55.9 Vitamin D deficiency, unspecified
CPT/HCPCS: 36415; 80053; 80061; 82306; 84443; 85025

== ENCOUNTER → 2023-10-19 | Outpatient (CLI) | payer MEDICARE, SELFPAY ==
--- OUTSIDE RECORDS SUMMARY | 2023-10-19 12:23 | XMS RPT_ITS | CCD ---
Author Name Unknown Address [address] [place] [address] Organization [facility] Care Team Providers Care Brick Paver Name Role Phone UNKNOWN, PROVIDER Unavailable Unavailable JAVI, BRITTNEY-CHI Unavailable Unavailable UNKNOWN, PROVIDER Unavailable Unavailable JAVI, BRITTNEY-CHI Unavailable Unavailable UNKNOWN, PROVIDER Unavailable Unavailable JAVI, BRITTNEY-CHI Unavailable Unavailable Javi, Brittney Chi Primary Care Provider Maninder Baumann Unavailable Unavailable Unavailable JAVI, BRITTNEY CHI Primary Care Unavailable TARYN VAUGHN Referring Unavailable MD SIDHU MICHAEL Attending Unavailable JAVI, BRITTNEY CHI Primary Care Unavailable Dr. Taryn Vaughn Referring Jania vailable Alek, Dr. Maninder Davis Primary Care Unava ilable Dr. Taryn aVughn Attending Jania vailable Dr. Taryn Vaughn Referring Jania vailable Dr. Maninder Baumann Primary Care Unava ilable Dr. Taryn Vaughn Attending Jania vailable MANINDER BAUMANN Primary Care Unavailab Fely SNYDER, Maninder Davis Primary Care Provider Unavailable TARYN VAUGHN Attending Unavailable MANINDER BAUMANN Primary Care Unavailab le Allergies Allergy Classification Reported Allergen(s) Allergy Type Date of Onset Reaction(s) Facility Sulfonamides (antibiotic) (2 sources) Sulfonamides (Antibiotic); Translations: [[facility]a [facility]] [facility] (4 sources) Sulfonamides (Antibiotic); Translations: [SULFA (SULFONAMIDE ANTIBIOTICS)] Drug Allergy 4 Rash [facility] (5 sources) Sulfonamides (Antibiotic); Translations: [Sulfa Drugs] Allergy to drug (finding) [facility] [address] DO Work Phone: (1 source) ALLERGIES NOT ON FILE; Translations: [ALLERGIES NOT ON FILE] Propensity to adverse reactions (disorder) [facility] Medications Current Medications Medication Drug Class(es) Dates Sig (Normalized) Sig (Original) aspirin 81 mg delayed release oral tablet (8 sources) Platelet Aggregation Inhibitor, Nonsteroidal Anti-inflammatory Drug Start: 12-02-2015 take 1 tablet by mouth once daily aspirin 81 mg EC tablet Take 1 tablet (81 mg) by mouth once daily. 0 12/02/2015 Active Completed/Discontinued Medications Medication Drug Class(es) Dates Sig (Normalized) Sig (Original) atorvastatin 40 mg oral tablet (7 sources) HMG-CoA Reductase Inhibitor take 1 tablet by mouth at bedtime Lipitor 40 MG Oral Tablet TAKE 1 TABLET PO AT BEDTIME. Quantity: 0 Refills: 0 Ordered: 26-Nov-2021 DO Active Problems Active Problems Problem Classification Problem Date Documented Date Episodic/Chronic Coronary atherosclerosis and other heart disease (7 sources) Atherosclerotic heart disease of [place] coronary artery without angina pectoris; Translations: [Coronary arteriosclerosis] Onset: 07-06-2017 07-21-2023 Chronic Disorders of lipid metabolism (9 sources) Hyperlipidemia; Translations: [Other and unspecified hyperlipidemia] Onset: 02-09-2022 Chronic E Codes: Fall (1 source) Unspecified fall, initial encounter; Translations: [Fall, initial encounter] Onset: 07-10-2022 Episodic Essential hypertension (8 sources) Essential (primary) hypertension; Translations: [Essential hypertension] Onset: 12-01-2015 06-21-2016 Chronic Essential hypertension (2 sources) Essential hypertension Onset: 10-21-2017 Genitourinary symptoms and ill-defined conditions (7 sources) Dysuria; Translations: [Dysuria] Episodic Mood disorders (1 source) Mood disorders Onset: 07-06-2017 Other diseases of bladder and urethra (7 sources) Detrusor overactivity; 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 Past or Other Problems Problem Classification Problem Date Documented Da te Episodic/Chronic Acute posthemorrhagic anemia (1 source) Acute posthemorrhagic anemia; Translations: [Anemia associated with acute blood loss] Onset: 6 12-01-2015 Episodic Calculus of urinary tract (1 source) Ureteric stone; Translations: [Ureteral stone] Onset: 6 06-21-2016 Episodic Conditions associated with dizziness or vertigo (1 source) Dizziness; Translations: [Dizziness] Onset: 6 12-01-2015 Episodic Diseases of white blood cells (1 source) Band neutrophil count above reference range; Translations: [Bandemia] Onset: 6 12-01-2015 Episodic Esophageal disorders (1 source) Ulcerative esophagitis; Translations: [Ulcerative esophagitis] Onset: 6 12-01-2015 Episodic Gastrointestinal hemorrhage (1 source) Gastrointestinal hemorrhage; Translations: [Hemorrhage of gastrointestinal tract] Onset: 6 12-01-2015 Episodic Unclassified (1 source) Unspecified jaundice; Translations: [Unspecified jaundice] Onset: 8 Unclassified (5 sources) Never smoked tobacco; Translations: [Never a smoker] Unclassified (1 source) Patient here for 6 month check up Onset: 3 Results Test Name Value Interpretation Reference Range Facil ity Vital Signs Date Time Vital Sign Value Performing Clinician Facility 07-21-2023 10:55-0500 Body height 157.5 cm Taryn Vaughn MD Work Phone: [facility] 07-21-2023 10:55-0500 Body mass index (BMI) [Ratio] 28.72 kg/m2 Taryn Vaughn MD Work Phone: [facility] 07-21-2023 10:55-0500 Body temperature 96.49 [degF] Taryn Vaughn MD Work Phone: [facility] 07-21-2023 10:55-0500 Body weight 71.22 kg Taryn Vaughn MD Work Phone: [facility] 07-21-2023 10:55-0500 Diastolic blood pressure 74 mm[Hg] Taryn Vaughn MD Work Phone: [facility] 07-21-2023 10:55-0500 Heart rate 76 /min Taryn Vaughn MD Work Phone: [facility] 07-21-2023 10:55-0500 Systolic blood pressure 122 mm[Hg] Taryn Vaughn MD Work Phone: [facility] 01-11-2023 11:45-0400 Body height 154.94 cm Maninder Baumann Work Phone: [facility] [address] [place] Work Phone: 01-11-2023 11:45-0400 Body mass index (BMI) [Ratio] 29.1 kg/m2 Maninder Baumann Work Phone: [facility] [address] [place] Work Phone: 01-11-2023 11:45-0400 Body surface area Derived from formula 1.69 m2 Maninder Baumann Work Phone: [facility] [address] [place] Work Phone: 01-11-2023 11:45-0400 Body weight 69.85 kg Maninder Buamann Work Phone: [facility] [address] [place] Work Phone: 01-11-2023 11:45-0400 Diastolic blood pressure 78 mm[Hg] Maninder Conde Baumann Work Phone: [facility] [address] [place] Work Phone: 01-11-2023 11:45-0400 Heart rate 64 /min Maninder Conde Baumann Work Phone: [facility] [address] [place] Work Phone: 01-11-2023 11:45-0400 Systolic blood pressure 118 mm[Hg] Maninder Conde Baumann Work Phone: [facility] [address] [place] Work Phone: 07-08-2022 11:05-0400 Body height 154.94 cm Maninder Baumann Work Phone: [facility] [address] [place] Work Phone: 07-08-2022 11:05-0400 Body mass index (BMI) [Ratio] 28.15 kg/m2 Maninder L Baumann Work Phone: [facility] [address] [place] Work Phone: 07-08-2022 11:05-0400 Body surface area Derived from formula 1.67 m2 Maninder Conde Baumann Work Phone: [facility] [address] [place] Work Phone: 07-08-2022 11:05-0400 Body weight 67.59 kg Maninder Conde Baumann Work Phone: [facility] [address] [place] Work Phone: 07-08-2022 11:05-0400 Diastolic blood pressure 84 mm[Hg] Manidner L Baumann Work Phone: [facility] [address] [place] Work Phone: 07-08-2022 11:05-0400 Heart rate 65 /min Maninder Baumann Work Phone: [facility] [address] [place] Work Phone: 07-08-2022 11:05-0400 Systolic blood pressure 120 mm[Hg] Maninder L Baumann Work Phone: [facility] [address] [place] Work Phone: 01-05-2022 10:10-0400 Body height 154.94 cm Maninder L Baumann Work Phone: [facility] [address] [place] Work Phone: 01-05-2022 10:10-0400 Body mass index (BMI) [Ratio] 29.29 kg/m2 Maninder Baumann Work Phone: [facility] [address] [place] Work Phone: 01-05-2022 10:10-0400 Body surface area Derived from formula 1.7 m2 Maninder Baumann Work Phone: [facility] [address] [place] Work Phone: 01-05-2022 10:10-0400 Body weight 70.31 kg Maninder Baumann Work Phone: [facility] [address] [place] Work Phone: 01-05-2022 10:10-0400 Diastolic blood pressure 94 mm[Hg] Maninder Baumann Work Phone: [facility] [address] [place] Work Phone: 01-05-2022 10:10-0400 Heart rate 73 /min Maninder Baumann Work Phone: [facility] [address] [place] Work Phone: 01-05-2022 10:10-0400 Systolic blood pressure 142 mm[Hg] Maninder Baumann Work Phone: [facility] [address] [place] Work Phone: 07-07-2021 10:57-0400 Body height 154.94 cm Maninder Baumann Work Phone: [facility] [address] DO Work Phone: 07-07-2021 10:57-0400 Body mass index (BMI) [Ratio] 29.29 kg/m2 Maninder Baumann Work Phone: [facility] [address] DO Work Phone: 07-07-2021 10:57-0400 Body surface area Derived from formula 1.7 m2 Maninder Baumann Work Phone: [facility] [address] [place] Work Phone: 07-07-2021 10:57-0400 Body weight 70.31 kg Maninder Baumann Work Phone: [facility] [address] [place] Work Phone: 07-07-2021 10:57-0400 Diastolic blood pressure 70 mm[Hg] Maninder Baumann Work Phone: [facility] [address] DO Work Phone: 07-07-2021 10:57-0400 Heart rate 78 /min Maninder Baumann Work Phone: [facility] [address] [place] Work Phone: 07-07-2021 10:57-0400 Systolic blood pressure 110 mm[Hg] Maninder Baumann Work Phone: [facility] [address] [place] Work Phone: 03-30-2021 19:40-0400 Body height 154.94 cm Maninder Baumann Work Phone: [facility] Work Phone: 03-30-2021 19:40-0400 Body mass index (BMI) [Ratio] 29.37 kg/m2 Maninder Conde Baumann Work Phone: [facility] Work Phone: 03-30-2021 19:40-0400 Body surface area Derived from formula 1.7 m2 Maninder Conde Baumann Work Phone: [facility] Work Phone: 03-30-2021 19:40-0400 Body temperature 97.5 [degF] Maninder Baumann Work Phone: [facility] Work Phone: 03-30-2021 19:40-0400 Body weight 70.5 kg Maninder Baumann Work Phone: [facility] Work Phone: 03-30-2021 19:40-0400 Diastolic blood pressure 67 mm[Hg] Maninder Baumann Work Phone: [facility] Work Phone: 03-30-2021 19:40-0400 Heart rate 86 /min Maninder Baumann Work Phone: [facility] Work Phone: 03-30-2021 19:40-0400 Respiratory rate 18 /min Maninder Baumann Work Phone: [facility] Work Phone: 03-30-2021 19:40-0400 SaO2% (BldA) [Mass fraction] 94 % Maninder Baumann Work Phone: [facility] Work Phone: 03-30-2021 19:40-0400 Systolic blood pressure 107 mm[Hg] Maninder Baumann Work Phone: [facility] Work Phone: 03-30-2021 19:40-0400 0 1 Maninder Baumann Work Phone: [facility] Work Phone: Encounters Encounter Date Encounter Type Care Provider Facility Start: 07-21-2023 End: 07-21-2023 ambulatory [facility] Start: 07-21-2023 End: 07-21-2023 Office outpatient visit 25 minutes Taryn Vaughn MD Work Phone: [facility] Procedures Date Procedure Procedure Detail Performing Clinician Start: 10-18-2023 CBC panel - Blood by Automated count MANINDER BAUMANN Start: 06-22-2023 Comprehensive metabo lic 2000 panel - Serum or Plasma MANINDER BAUMANN Start: 06-22-2023 Lipid panel MANINDER IRVIN S Start: 06-22-2023 Lipid 1996 panel - S milo or Plasma Taryn Vaughn MD Work Phone: Start: 04-16-2004 Mammography Alireza gómez Start: 10-18-2003 CONVERTED SURGICAL PATHOLOGY Alireza Mackenzie Syed Work Phone: Cardiac catheterization Kevi n Elton Baumann Work Phone: Cholecystectomy Maninder child Work Phone: Dental surgical procedure Shailesh Baumann Work Phone: Electronic Bladder Stimulator Maninder Baumann Work Phone: Hysterectomy Maninder Baumann Work Phone: Plan of Treatment Date Care Activity Detail Author Start: 06-22-2028 Lipid panel Lipid Panel [facility] Start: 04-25-2027 DTaP/Tdap/Td Vaccine s (2 - Td or Tdap) DTaP/Tdap/Td Vaccines (2 - Td or Tdap) [facility] Start: 04-25-2027 Urine microalbumin profile DTAP,TDAP,TD (2 - Td) [facility] Start: 01-19-2024 End: 01-19-2024 Patient encounter procedure 01/19/2024 10:45 AM EDT Office Visit [facility] [address] [place] [address] [place] [address] [place] [address] [facility] Start: 07-29-2023 COVID-19 Vaccine (4 - Pfizer series) COVID-19 Vaccine (4 - Pfizer series) [facility] Start: 07-12-2023 FUV, Provider: Taryn Vaughn, Status: Pen, Time: 11:30 AM FUV, Provider: Taryn Vaughn, Status: Pen, Time: 11:30 AM [facility] [address] [place] Work Phone: Start: 01-06-2023 FUV, Provider: Taryn Vaughn, Status: Pen, Time: 11:30 AM FUV, Provider: Taryn Vaughn, Status: Pen, Time: 11:30 AM [facility] [address] [place] Work Phone: Start: 07-08-2022 FUV, Provider: Taryn Vaughn, Status: Pen, Time: 11:00 AM FUV, Provider: Taryn Vaughn, Status: Pen, Time: 11:00 AM [facility] [address] [place] Work Phone: Start: 03-19-2022 DIABETES SCREEN DIABETES SCREEN [facility] Start: 01-05-2022 FUV, Provider: Taryn Vaughn, Status: Pen, Time: 10:00 AM FUV, Provider: Taryn Vaughn, Status: Pen, Time: 10:00 AM [facility] [address] DO Work Phone: Start: 07-21-2020 LIPID SCREEN LIPID SCREEN [facility] Start: 05-06-2020 Influenza vaccination INFLUENZA (#1) [facility] Start: 2011 ADVANCE DIRECTIVE DISCUSSION ADVANCE DIRECTIVE DISCUSSION [facility] Start: 2011 BONE DENSITY BONE DENSITY [facility] Start: 2011 PNEUMOVAX AGE 65 AND OVER WITH 5YR LOOKBACK (#1) PNEUMOVAX AGE 65 AND OVER WITH 5YR LOOKBACK (#1) [facility] Start: 04-16-2005 Mammography MAMMOGRAM [facility] Start: 01-16-1996 SHINGRIX VACCINE (1 of 2) SHINGRIX VACCINE (1 of 2) [facility] Start: 01-16-1996 Tuberculosis screening [facility]OR[facility] BROOKE CANCER SCREENING,SEE MODIFIER [facility] Start: 01-16-1964 ANNUAL PCP TEAM DIGITAL COMMUNITY MANAGER NEDRA DISEASE VISIT ANNUAL PCP TEAM CHRONIC DISEASE VISIT [facility] Start: 01-16-1964 BP CONTROLLED (<130/80) BP CON TROLLED (<130/80) [facility] Start: 01-16-1964 HEPATITIS C SCREENING HEPATITIS C [facility] Start: 01-16-1964 Hepatitis C screening Hepatitis C [facility] Start: 1945 Medicare Annual Well ness Visit Medicare Annual Wellness Visit (AWV) [facility] Start: 1945 Screening for osteoporosis Bone Density Scan [facility] Immunizations Immunization Date Immunization Notes Care Provider Fa richard 06-07-2022 Pfizer COVID-19 Vac Bivalent 30 MCG/0.3ML Intramuscular Suspension Maninder Conde [employer] Work Phone: [facility] [address] [place] Work Phone: 05-11-2022 Fluzone High-Dose Quadrivalent 0.7 ML Intramuscular Suspension Prefilled Syringe Maninder Conde [employer] Work Phone: [facility] [address] [place] Work Phone: 05-11-2022 Prevnar 20 0.5 ML Intramuscular Suspension Prefilled Syringe Maninder Conde [employer] Work Phone: [facility] [address] [place] Work Phone: 12-14-2021 Comirnaty 30 MCG/0.3 ML Intramuscular Suspension Maninder Conde [employer] Work Phone: [facility] [address] [place] Work Phone: 07-01-2021 Pfizer-BioNTech COVI D-19 Vacc 30 MCG/0.3ML Intramuscular Suspension Maninder Conde [employer] Work Phone: [facility] [address] [place] Work Phone: 05-25-2021 Fluzone High-Dose Quadrivalent 0.7 ML Intramuscular Suspension Prefilled Syringe Maninder Conde [employer] Work Phone: [facility] [address] [place] Work Phone: 12-15-2020 Pfizer-BioNTech COVI D-19 Vacc 30 MCG/0.3ML Intramuscular Suspension Maninder Conde [employer] Work Phone: [place] [address] [place] Work Phone: 11-16-2020 Pfizer-BioNTPace4Life COVI D-19 Vacc 30 MCG/0.3ML Intramuscular Suspension Maninder L Baumann Work Phone: [place] [address] [place] Work Phone: 06-03-2020 influenza, injectabl e, quadrivalent, contains preservative Maninder L Baumann Work Phone: [address] Work Phone: 05-08-2020 influenza, injectabl e, quadrivalent, preservative free Maninder L Baumann Work Phone: [address] Work Phone: 06-29-2019 influenza, high dose seasonal, preservative-free Maninder L Baumann Work Phone: [address] Work Phone: 06-28-2019 zoster vaccine recombinant Maninder L Baumann Work Phone: [address] Work Phone: 04-14-2019 zoster vaccine recombinant Maninder L Baumann Work Phone: [address] Work Phone: 04-25-2017 tetanus toxoid, redu giuliano diphtheria toxoid, and acellular pertussis vaccine, adsorbed Maninder L Baumann Work Phone: [place] [address] [place] Work Phone: 05-27-2016 influenza, high dose seasonal, preservative-free Maninder L Baumann Work Phone: [place] [address] [place] Work Phone: 09-21-2013 pneumococcal conjuga te vaccine, 13 valent Maninder Baumann Work Phone: -[facility] [address] [address] [place] Work Phone: Payers Date Payer Category Payer Medicare [id number] 2019 Medicare [employer] MEDICARE [employer] GOLD CHOICE [id number] 2019-Present [address] [address] [place] [address] [id number] 1945 Unknown [id number] 1945 Unknown [id number] 1945 Unknown [id number] Medicare [id number] Unknown Social History Date Type Detail Facility Tobacco smoking status TXIS Unknown if ever smoked [facility] Start: 1945 Sex Assigned At Not on file [facility] Start: 07-21-2023 Non-smoker [facility]sm[facility] Work Phone: Start: 07-21-2023 Tobacco smoking status TXIS Tobacco smoking consumption unknown [facility] Work Phone: Start: 07-21-2023 Tobacco use and exposure Smokeless tobacco non-user [facility] Work Phone: Start: 07-21-2023 Alcohol intake Current drinke r of alcohol (finding) [facility] Work Phone: Start: 07-21-2023 [facility] Start: 07-11-2023 End: 07-21-2023 Exposure to SARS-CoV-2 (event) Not sure [facility] NEGATED: Highlighted rowStart: NINF History of tobacco use Passive smoker [facility] Work Phone: History of Present illness Narrative 07-21-2023 Taryn Vaughn MD - 07/21/2023 10:45 AM EST Note Date & Type Note Facility 07-21-2023 History of Present illness Narrative 1. Anterior wall NV complicated by cardiac arrest and urgent heart catheterization and PCI 2008 2. Hypertension 3. Hyperlipidemia 4. Overweight BMI 28.2 Patient is a pleasant 78-year-old female with the above-noted pertinent past medical history who presents today for follow-up. She has no complaints of exertional chest pain or shortness of breath however when questioned regarding activity she states that she has not started her walking regimen at the gym as she had plan to, she has no complaints of orthopnea PND palpitation or syncopal episode BMI is elevated 28.7 she weight 149 pounds 07/2022, and she weighs 157 pounds and 07/2023 patient is well-developed well-nourished female accompanied by her , carotid upstroke and volumes are normal, heart rate and rhythm are regular S1-S2 are normal no gallop or murmurs, lungs are clear to auscultation abdomen is distended positive bowel sounds soft and nontender and the lower extremities have no edema 06/22/2023 Total cholesterol 173, triglyceride 96, HDL 66, and LDL of 88 Sodium 145, potassium 4.1, BUN 17, creatinine of 0.75 with normal LFT Protein low 6.1 Hemoglobin of 13.5 hematocrit of 42.3 Coronary artery disease with acute ST segment elevation myocardial infarction further complicated by cardiac arrest and required urgent left heart catheterization and PCI of the LAD,, since she has performed well she has no complaints of exertional chest pain however her level of activity is below the recommended level case was discussed with her and increasing activity with a goal of 150 minutes of moderate exercise per week was discussed and details provided Hypertension under good control Hyperlipidemia her latest cholesterol profile was reviewed and discussed with her Overweight heart healthy diet and weight loss recommended Patient is a non-smoker Low protein and improving nutrition was discussed and recommended Return to my clinic in 6 months. documented in this encounter [facility] Work Phone: History of Present illness Narrative 04-01-2021 Note Date & Type Note Facility 04-01-2021 History of Presen t illness Narrative 76-year-old female with a 5-day history of dysuria and urinary frequency. Symptoms have worsened over the last 24 hours. No blood in the urine or fever. She does get 2 or 3 UTIs per year. Review of systems is otherwise negative for constitutional, ear nose and throat, neck, heart, lungs, and abdomen. -[facility] Work Phone: History of Present illness Narrative 03-30-2021 Note Date & Type Note Facility 03-30-2021 History of Presen t illness Narrative 76-year-old female with a 5-day history of dysuria and urinary frequency. Symptoms have worsened over the last 24 hours. No blood in the urine or fever. She does get 2 or 3 UTIs per year. Review of systems is otherwise negative for constitutional, ear nose and throat, neck, heart, lungs, and abdomen. -[facility] Work Phone: Evaluation note Note Date & Type Note Facility documented in this encounter [facility] Work Phone: History of Present illness Narrative Note Date & Type Note Facility History of Present illness Narrative 1 AWMI, cardiogenic shock, LAD stenting . Hypertension.3. Hyperlipidemia.4. Depression, controlled.5. Degenerative joint disease.6. Upper GI bleed.7. Overweight8. 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.BMI is elevated at 29.3Skin is warm and dry, lesion of the left forehead noted, no carotid bruits, heart rate and rhythm are regular S1-S2 are normal no gallop or murmurs, lungs are clear to auscultation abdomen is obese positive bowel sounds soft and nontender, and the lower extremities have no edemaNovember 2020Sodium 143, potassium 4.3, BUN 17, creatinine of 0.87Hemoglobin 14 hematocrit of 44.5Total cholesterol 173, triglycerides 75, HDL 463, and LDL of 95Coronary artery disease prior LAD stenting in the setting of cardiogenic shock who has performed well clinically continue risk factor modification was extensively discussed and recommendations were made, the importance of heart healthy diet weight loss was discussed, reviewing her diet appears that she is now in the habit of baking frequently, decreasing calorie intake and portion controlled was discussedHypertension under good controlHyperlipidemia requisition for CBC CMP and a cholesterol panel was providedPatient is to return to my clinic in 6 months for follow-up patient will be notified of the lab work via the phone. [facility] [address] DO Work Phone: History of Present illness Narrative Note Date & Type Note Facility History of Present illness Narrative 1. Anterior wall NV complicated by cardiac arrest and urgent heart catheterization and PCI 97154. Hypertension3. HyperlipidemiaPatient is a pleasant 76-year-old female with the above-noted cardiac past medical history who presents today for follow-up she is accompanied by her , she has no complaints of exertional chest pain or shortness of breath although she endorses some shortness of breath with hurrying, she has no complaints of orthopnea PND palpitation weight gain or lower extremity edemaBMI is elevated at 29.3No carotid bruits upstroke and volumes are normal, heart rate and rhythm are regular S1 and S2 are normal no gallop or murmurs are appreciated today, lungs decreased breath sound but clear, abdomen is mildly obese positive bowel sounds soft and nontender, and the lower extremities have no edemaNovember 2021Sodium 143, potassium 5, BUN 14, creatinine 0.61 with normal liver function testTotal cholesterol 170, triglyceride 52, HDL 71, and LDL of 89Coronary artery disease complicated by cardiac arrest and urgent PCI her ejection fraction is now normalized 55-60% continued risk factor modification heart healthy diet regular activity and exercises compliant with medication was discussed and recommendations madeHypertension today's blood pressure by my reading slightly elevated at 146/82 mmHg however patient's home blood pressure readings under very good control mostly 120 130/70-80 mmHg, no medication changes was made today, was recommended to continue with the blood pressure readings at home and to call the office should the blood pressure increases 140/90 mmHgImmunization [id number] is provided with requisition for CBC CMP and a cholesterol panelReturn to my clinic in 6 months [facility] [employer] [address] [employer] Work Phone: History of Present illness Narrative Note Date & Type Note Facility History of Present illness Narrative 1. 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 Hypertension3. Hyperlipidemia4. Overweight BMI 28.2Pshalonda is a pleasant 77-year-old female with the above-noted past medical history who presents today for follow-up, she is accompanied by her , she has no complaints of exertional chest pain or shortness of breath she states that she has a new dog that she walks routinely 3 times a day for total distance of over 3 miles, with this she has minutes 7 pounds of weight loss, she denies any complaints of orthopnea PND palpitation or syncopal episode, she states that she has an upcoming battery change for her lower back TENS unit and possible dental procedure.BMI today 28.1 previously 29.3Paticordelia is a well-developed well-nourished female in no acute distress skin is warm and dry speaking full sentences, no carotid bruits upstroke and volumes are normal, heart rate and rhythm are regular S1 and S2 are normal intensity no gallop or murmurs are appreciated, lungs clear to auscultation normal air entry abdomen is mildly distended positive bowel sounds soft and nontender, and the lower extremities have no edemaJune 2021Total cholesterol 161, triglyceride 53, HDL 71, and LDL of 79Coronary artery disease prior anterior wall myocardial infarction complicated by cardiogenic shock, intubation, and long stay at the hospital who was clinically performed well she continues to have good risk factor modificationBlood pressure under good controlHyperlipidemia her latest cholesterol profile was reviewed and discussed with her patient is provided with requisition for CBC CMP and a cholesterol panelRecommendation for her operation regarding aspirin therapy was made to stop the aspirin for 7 days and restart day after the procedure.Return to my clinic in 6 months [facility] [employer] [address] [employer] Work Phone: History of Present illness Narrative Note Date & Type Note Facility History of Present illness Narrative 1. 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 Hypertension3. Hyperlipidemia4. Overweight BMI 28.2Patient is a pleasant 77-year-old female with the above-noted pertinent past medical history who presents today for follow-up. Today she is accompanied by her , she states that she has no complaints of exertional chest pain or shortness of breath when questioned regarding activity she states that she began her walking regimen again with the changes in the weather, winter months is I am dormant not very active, she has no complaints of orthopnea PND palpitation or syncopal episodeBMI is elevated at 29.1 previously at 28.1Well-developed well-nourished female in no acute distress speaking full sentences skin is warm and dry, no carotid bruits upstroke and volumes and central venous pressures are normal, heart rate and rhythm are regular S1-S2 are normal intensity no gallop or murmurs are appreciated lungs clear to auscultation abdomen is distended positive bowel sounds soft and nontender, and the lower extremities have no evidence of vascular insufficiency or edemaFebruary 2022Sodium 145, potassium 3.8, BUN 18, creatinine 1.13 and blood glucose level of 88 with normal liver function testAlbumin 3.5, protein 6.8,Hemoglobin of 14.8, hematocrit of 45.8, with a platelet counts are normal at 245,000Total cholesterol 193, triglyceride 118, HDL 76, and LDL of 93Coronary artery disease prior anterior wall myocardial infarction who is clinically without signs and symptoms ischemia the importance of risk factor modification was extensively discussed and recommendations were made see belowHypertension under good controlHyperlipidemia with acceptable cholesterol profileOverweight heart healthy diet and weight loss at recommendedCurrently patient not meeting the recommended guidelines for exercises which was discussed and recommendations were madePatient is a non-smokerReturn to my clinic in 6 months. [facility] [address] [employer] Work Phone: Reason for referral (narrative) Consultation (Routine) - Authorized Note Date & Type Note Facility Referral ID Status Reason Start Date Expiration Date V isits Requested Visits Authorized [id number] Authorized 07/21/2023 07/20/2024 1 1 [facility] Work Phone: Summary Purpose Family History No Family History Records FoundUnknown Family Member Name Dates Details No pertinent family history: Mother, Father(V49.89, Z78.9) Status:Active Unknown Family Member Name Dates Details No pertinent family history: Mother, Father(V49.89, Z78.9) Status:Active Unknown Family Member Name Dates Details No pertinent family history: Mother, Father(V49.89, Z78.9) Status:Active Unknown Family Member Name Dates Details No pertinent family history: Mother, Father(V49.89, Z78.9) Status:Active Unknown Family Member Name Dates Details No pertinent family history: Mother, Father(V49.89, Z78.9) Status:Active Advance Directives No Advanced Directives Records FoundDocuments on File Type Date 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 Advance Directive(s) 04/25/2017 6:22 PM Advance Directive(s) 03/19/2019 5:56 AM Chief Complaint Patient here for 6 month check upPatient here for 6 month check upPatient here for 6 month check upPateint being seen for 6 month check up Additional Source Comments INFORMATION SOURCE (unrecogn ized section and content) DATE CREATED AUTHOR AUTHOR'S ORGANIZ ATION 07/15/2021 [facility] DATE CREATED AUTHOR AUTHOR'S ORGANIZ ATION 07/13/2022 [facility] DATE CREATED AUTHOR AUTHOR'S ORGANIZ ATION 01/13/2023 [facility] DATE CREATED AUTHOR AUTHOR'S ORGANIZ ATION 01/13/2023 [employer] DATE CREATED AUTHOR AUTHOR'S ORGANIZ ATION 06/27/2023 [facility] DATE CREATED AUTHOR AUTHOR'S ORGANIZ ATION 07/23/2023 [facility] Source Comments (unrecognize d section and content) In the event this informatio n is protected by the Federal Confidentiality of Alcohol and Drug Abuse Patient Records regulations: The Federal rules restrict any use of the information to criminally investigate or prosecute any alcohol or drug abuse patient.[facility] Reason for Visit (unrecogniz ed section and content) Care Teams (unrecognized sec tion and content) FOR RECORDS PERTAINING TO PATIENTS WHO ARE OR HAVE BEEN ENROLLED IN A CHEMICAL DEPENDENCY/SUBSTANCEABUSE PROGRAM, SOME INFORMATION MAY BE OMITTED. This clinical summary was aggregated from multiple sources. Caution should be exercised in using it in the provision of clinical care. This summary normalizes information from multiple sources, and as a consequence, information in this document may materially change the coding, format and clinical context of patient data. In addition, data may be omitted in some cases. CLINICAL DECISIONS SHOULD BE BASED ON THE PRIMARY CLINICAL RECORDS. [employer] [facility]. provides no warranty or guarantee of the accuracy or completeness of information in this document.
[2023-10-19 12:36] LABS: Absolute Lymphocyte Count 1.61 X10^3/uL (0.83-4.51); Absolute Neutrophil Count 3.7 X10^3/uL (2.0-7.7); Basophil# 0.02 X10^3/uL; Basophil% 0.3 % (0-1); Eosinophil# 0.13 X10^3/uL; Eosinophils% 2.1 % (0-5); Hematocrit 42.5 % (37-47); Hemoglobin 13.8 g/dL (12.0-15.0); Lymphocyte # 1.61 X10^3/ul (0.83-4.51); Lymphocyte % 26.4 % (19-41); Mean Corp Hgb Conc 32.5 g/dL (32-36); Mean Corpuscular Hgb 28.6 pg (27.0-32.0); Mean Corpuscular Volume 88.2 fL (81-99); Monocyte# 0.62 X10^3/uL; Monocyte% 10.2 % (0-10); NRBC Flagged by Analyzer 0 % (0-5); Neutrophil % 60.7 % (47-70); Platelet Count 225 K/mm3 (150-450); RBC Distribution Width CV 13.5 % (11.6-14.6); RBC Distribution Width SD 43.8 fl (35.1-43.9); Red Blood Count 4.82 M/mm3 (4.2-5.4); White Blood Count 6.1 K/mm3 (4.4-11.0)
[2023-10-19 13:02] LABS: Vitamin D,25 Hydroxy 62.5 ng/mL
[2023-10-19 13:29] LABS: AST(SGOT) 19 U/L (15-37); Alanine Aminotransfer ALT/SGPT 24 U/L (13-56); Albumin, Serum 3.3 g/dL (3.2-5.0); Alkaline Phosphatase 86 U/L (45-117); Anion Gap 4 (5-15); BUN 25 mg/dL (7-18); BUN/Creat Ratio 26.8 RATIO (10-20); Calcium,Total 9.3 mg/dL (8.5-10.1); Chloride 111 mmol/L (98-107); Cholesterol 160 mg/dL (200); Creatinine, Serum 0.93 mg/dL (0.55-1.02); EST Glomerular Filtration Rate 62 mL/min (>60); Est Glom Filt Rate - Afr Amer 75 mL/min (>60); Globulin 3.4 g/dL (2.2-4.2); Glucose 91 mg/dL (74-106); High Density Lipoprotein 64 mg/dL; Potassium 3.9 mmol/L (3.5-5.1); Protein, Total 6.7 g/dL (6.4-8.2); Sodium Level 141 mmol/L (136-145); Thyroid Stim Hormone (TSH) 2.58 uIU/mL (0.358-3.74); Triglycerides 105 mg/dL; Very Low Density Lipoprotein 21 mg/dL (5-40)
== END | disposition home or self-care (01) ==
LOC: LAB 12:04
PROVIDERS: PCP Family Medicine Geriatric Medicine; Visit Provider Family Medicine Geriatric Medicine
DX: I10 Essential (primary) hypertension (principal); E55.9 Vitamin D deficiency, unspecified; E78.5 Hyperlipidemia, unspecified
CPT/HCPCS: 36415; 80053; 80061; 82306; 84443; 85025

== ENCOUNTER → 2024-03-05 | Outpatient (CLI) | payer MEDICARE, SELFPAY ==
[2024-03-05 16:00] LABS: Color, Urine Yellow (Yellow); Glucose, Dipstick Normal (Normal); Ketone-Dipstick Negative (Negative); Leukocyte Esterase-Dipstick 500 /ul (Negative); Nitrite-Dipstick Negative (Negative); Occult Blood-Urine 50 /ul (Negative); Protein-Dipstick 15 mg/dl (Negative); Specific Gravity, Urine 1.015 (1.002-1.030); Urine Bilirubin Dipstick Negative (Negative); Urine Clarity Cloudy (Clear); Urine Urobilinogen Normal (Normal)
== END | disposition home or self-care (01) ==
LOC: POLAB3 14:22
PROVIDERS: PCP Family Medicine Geriatric Medicine; Visit Provider Family Medicine Geriatric Medicine
DX: N39.0 Urinary tract infection, site not specified (principal)
CPT/HCPCS: 81002; 87077; 87086; 87088; 87186

== ENCOUNTER → 2024-04-26 | Outpatient (CLI) | payer MEDICARE, SELFPAY ==
[2024-04-26 11:19] LABS: Absolute Lymphocyte Count 1.89 X10^3/uL (0.83-4.51); Absolute Neutrophil Count 3.4 X10^3/uL (2.0-7.7); Basophil# 0.04 X10^3/uL; Basophil% 0.6 % (0-1); Eosinophil# 0.18 X10^3/uL; Eosinophils% 2.9 % (0-5); Hematocrit 44.7 % (37-47); Hemoglobin 14.2 g/dL (12.0-15.0); Lymphocyte # 1.89 X10^3/ul (0.83-4.51); Lymphocyte % 30.4 % (19-41); Mean Corp Hgb Conc 31.8 g/dL (32-36); Mean Corpuscular Hgb 28.3 pg (27.0-32.0); Mean Corpuscular Volume 89.2 fL (81-99); Mean Platelet Vol. 10.5 fl (6.2-12.0); Monocyte% 11.3 % (0-10); NRBC Flagged by Analyzer 0 % (0-5); Neutrophil % 54.6 % (47-70); Platelet Count 239 K/mm3 (150-450); RBC Distribution Width CV 14.5 % (11.6-14.6); RBC Distribution Width SD 46.6 fl (35.1-43.9); Red Blood Count 5.01 M/mm3 (4.2-5.4); White Blood Count 6.2 K/mm3 (4.4-11.0)
[2024-04-26 12:11] LABS: ALB/GLOB Ratio 0.9 RATIO (0.9-2.4); AST(SGOT) 21 U/L (15-37); Alanine Aminotransfer ALT/SGPT 20 U/L (13-56); Albumin, Serum 3.3 g/dL (3.2-5.0); Alkaline Phosphatase 87 U/L (45-117); Anion Gap 7 (5-15); BUN 22 mg/dL (7-18); BUN/Creat Ratio 22.4 RATIO (10-20); Calcium,Total 9.2 mg/dL (8.5-10.1); Chloride 111 mmol/L (98-107); Cholesterol 184 mg/dL (200); Creatinine, Serum 0.98 mg/dL (0.55-1.02); EST Glomerular Filtration Rate 58 mL/min (>60); Est Glom Filt Rate - Afr Amer 70 mL/min (>60); Globulin 3.5 g/dL (2.2-4.2); Glucose 89 mg/dL (74-106); High Density Lipoprotein 70 mg/dL; Potassium 3.8 mmol/L (3.5-5.1); Protein, Total 6.8 g/dL (6.4-8.2); Sodium Level 142 mmol/L (136-145); Triglycerides 75 mg/dL; Very Low Density Lipoprotein 15 mg/dL (5-40)
== END | disposition home or self-care (01) ==
LOC: POLAB3 11:08
PROVIDERS: PCP Family Medicine Geriatric Medicine; Visit Provider Family Medicine Geriatric Medicine
DX: I10 Essential (primary) hypertension (principal); E78.5 Hyperlipidemia, unspecified; E55.9 Vitamin D deficiency, unspecified
CPT/HCPCS: 36415; 80053; 80061; 82306; 84443; 85025

== ENCOUNTER → 2024-10-22 | Outpatient (CLI) | payer MEDICARE, SELFPAY ==
[2024-10-22 13:32] LABS: Absolute Lymphocyte Count 1.95 X10^3/uL (0.83-4.51); Absolute Neutrophil Count 4.3 X10^3/uL (2.0-7.7); Basophil# 0.04 X10^3/uL; Basophil% 0.6 % (0-1); Eosinophil# 0.18 X10^3/uL; Eosinophils% 2.5 % (0-5); Hemoglobin 13.5 g/dL (12.0-15.0); Lymphocyte # 1.95 X10^3/ul (0.83-4.51); Lymphocyte % 26.9 % (19-41); Mean Corp Hgb Conc 32.1 g/dL (32-36); Mean Corpuscular Hgb 27.5 pg (27.0-32.0); Mean Corpuscular Volume 85.5 fL (81-99); Mean Platelet Vol. 9.9 fl (6.2-12.0); Monocyte# 0.73 X10^3/uL; Monocyte% 10.1 % (0-10); NRBC Flagged by Analyzer 0 % (0-5); Neutrophil # 4.32 X10^3/uL (2.7-7.7); Neutrophil % 59.6 % (47-70); Platelet Count 247 K/mm3 (150-450); RBC Distribution Width CV 14.2 % (11.6-14.6); RBC Distribution Width SD 43.9 fl (35.1-43.9); Red Blood Count 4.91 M/mm3 (4.2-5.4); White Blood Count 7.2 K/mm3 (4.4-11.0)
[2024-10-22 13:52] LABS: Vitamin D,25 Hydroxy 52.6 ng/mL
[2024-10-22 14:02] LABS: AST(SGOT) 23 U/L (15-37); Alanine Aminotransfer ALT/SGPT 23 U/L (13-56); Albumin, Serum 3.4 g/dL (3.2-5.0); Alkaline Phosphatase 97 U/L (45-117); Anion Gap 9 (5-15); BUN 23 mg/dL (7-18); BUN/Creat Ratio 24.1 RATIO (10-20); Calcium,Total 9.1 mg/dL (8.5-10.1); Chloride 109 mmol/L (98-107); Cholesterol 172 mg/dL (200); Creatinine, Serum 0.96 mg/dL (0.55-1.02); EST Glomerular Filtration Rate 60 mL/min (>60); Est Glom Filt Rate - Afr Amer 73 mL/min (>60); Globulin 3.5 g/dL (2.2-4.2); Glucose 93 mg/dL (74-106); High Density Lipoprotein 81 mg/dL; Protein, Total 6.9 g/dL (6.4-8.2); Sodium Level 140 mmol/L (136-145); Triglycerides 76 mg/dL; Very Low Density Lipoprotein 15 mg/dL (5-40)
== END | disposition home or self-care (01) ==
PROVIDERS: PCP Family Medicine Geriatric Medicine; Referring Provider Family Medicine Geriatric Medicine; Visit Provider Family Medicine Geriatric Medicine
DX: I10 Essential (primary) hypertension (principal); E78.5 Hyperlipidemia, unspecified; E55.9 Vitamin D deficiency, unspecified
CPT/HCPCS: 36415; 80053; 80061; 82306; 84443; 85025

== ENCOUNTER 2024-11-05 12:32 | Outpatient (RCR) | payer MEDICARE, SELFPAY ==
--- NOTE | 2024-11-05 14:19 | HP.SP.EV_ITS ---
Visit History Visit Info Date of Eval: 11/05/24 Visit: 1 Engineering Technician Parking: SELENA History Attending Doctor: Referring Doctor: Reason for Referral: DYSPHAGIA RX HERE Medical Diagnosis: Dysphagia Previous speech therapy: Yes Results: MBSS on 10/15/15 - Results: This patient presents with oropharyngeal and pharyngeal swallow functions that are mildly impaired. Oral phase appears intact at this time. Oral phase is FUNCTIONAL characterized by: -sufficient labial seal w/ no anterior bolus loss -efficient rotary mastication -cohesive bolus formation -timely A-P bolus transit Oropharyngeal phase is MILDLY IMPAIRED characterized by: -swallow onset initiates at the posterior apical surface of the epiglottis with pudding and cookie, liquid swallows initiate at the ramus of mandible Pharyngeal phase is MILDLY IMPAIRED characterized by: -complete laryngeal elevation / laryngeal vestibule closure / complete epiglottic inversion -no laryngeal vestibule penetration or aspiration appreciated w/ all consistencies assessed -diminished pharyngeal stripping wave; this left a minimal residual with all consistencies, residue increased with pudding which produced a small webbing from the apex of the epiglottis to the posterior pharyngeal wall and increased vallecular residue with the 1/2 kourtney doone cookie trial. Liquid wash and cough/reswallow was ineffective. An effortful reswallow was most effective, but a small amount of residue still remained in the vallecular space. -complete distention of the pharyngoesophageal segment w/ complete bolus clearance Esophageal phase is characterized by: Bony prominence at the C6 vertebrae which protrudes anteriorly into the esophageal space as outlined when barium passes through the esophagus. This does not impede bolus flow at this time, but may contribute to the pt's globus sensation after swallowing. Other Relevant Medical History/Diagnoses/Surgery: Stroke 8 years ago, acid reflux, hiatal hernia, bleeding ulcer. She has not seen GI in at least 6 years. Medications related to this diagnosis: Pantoprazole twice daily. Smoking Status: Never smoker Diagnosis Diagnosis: Dysphagia Pain Is pain an issue with your current prescribed condition?: No Personal Preferred language: Uzbek Patient Allergies Allergies Allergies: Allergies Sulfa (Sulfonamide Antibiotics) Allergy (Verified 01/13/23 06:42) Hives Subjective Dysphagia Symptoms Reported Symptoms/Problems with: Choking, Difficulty Swallowing Solids, Difficulty Swallowing Pills, Food gets stuck and Xerostomia Current Diet Solids Current Diet: Regular Current Diet Liquids Current Liquids: Thin Comments Patient report: -: Patient reports that she has eliminated peas, corn, baby nieto beans, lettuce and nuts from her diet. Pills, particularly one small one, won't always go down until 2-3 drinks later. She reported a feeling of food sticking at the base of the throat. She has intermittent coughing during eating but occasionally while not eating. Objective Dysphagia Administered by Administered by: Self Thin Liquids Administred via: Cup Oral Transit: WNL Bolus clearance: fully cleared Gagging: No Cough: none observed/unable to assess Patient Report: Patient had no complaints. Recommendations Modified Barium Swallow/Cookie Swallow Recommended: Yes Swallowing Treatment: Yes Diet Texture Recommendations Solids: Regular (Level 7) Liquids: Thin (Level 0) Other: Add moisture to dry foods. Safety Saftey Precautions/Swallowing Recommendations (Check all that Apply): Reduce Distractions, Upright Position at Least 30 Minutes After Meals, Small Sips & Bites when Eating and Multiple Swallows Results Swallowing Within Normal Limits: No (Suspected) Swallowing Diagnosis: Oropharyngeal Phase Dysphagia (R13.12) Objective Oral Motor Oral Status Dentition: WNL Labial Impairment: WNL Closure: WNL Pucker: WNL Retraction: WNL Alternating Pucker/Retraction: WNL Involuntary Movement noted: No Lingual Impairment: WNL Protrusion: WNL Retraction: WNL Lateralization: WNL Involuntary Movement: No Jaw Impairment: WNL Respiratory Status Respiratory Status: Room Air Swallowing Performance Scale Swallowing Performance Scale Swallowing Performance Scale Result: 2 Within Functional Limit Reference: Neuro-QoL instrument Radiation Oncology Patient Plan Plan Plan: Patient presents with complaints of dysphagia. Recommend instrumental swallow evaluation (MBSS) to determine diet recommendation and further need for treatment which will be targeted based on results of MBSS. Recommendations Treatment Warranted: Yes Treatment Warranted: Dysphagia Progress Prognosis: Good Frequency Additional (Frequency): After MBSS patient will be treated for 1-2 visits ( at once per week as recommended by the MBSS) then again in 4-8 weeks based upon MBSS. Duration: 6 Months Patient/Family Goal Patient/Family Goal: Patient would like to not cough while eating. Goals that are Established Determination:: Goals will be added/modified as deemed necessary and appr opriate. Therapy will be discontinued when results of re-evaluation indicate therapy is no longer needed or lack of progress has been documented. Goal #1-5 Goal #1: Patient will tolerate the least restrictive means of nutrition to facilitate adequate hydration/nutrition with optimum safety and efficiency of swallowing function during P.O. intake without overt signs and symptoms of aspiration. Goal #2: Patient will participate in Modified Barium Swallow (MBS) study to objectively assess Pt's oropharyngeal swallow function to determine the least restrictive means of nutrition and further need for dysphagia treatment. Education Patient has Indicated that the Following Identified Educational Needs: None The Patient has indicated that they have no educational or learning abilities that may effect their care.: Yes Patient Instruction Patient Education: Diagnosis, Treatment Plan and Diet Level Person Taught: Patient and Significant Other Response to teaching: Return Demonstration, Verbalize Understanding and Has Prior Knowledge
--- NOTE | 2025-03-04 12:12 | HP.SP.DC ---
ST Discharge Summary Discharged: Discharge: Sydnie Prado is discharged from [facility] as of March 04, 2025 as no further visits were completed. She was evaluated on 11/05/24 with a diagnosis of dysphagia with an MBSS recommended which was completed on 12/26/24. She was given a diagnosis of Mild oropharyngeal dysphagia with recommendations of Diet: Regular Textures (Moisten dry textures) and Thin Liquids Compensatory Strategies: Small Bites, Small Sips, Slow Rate, Alternate bites/solids and sips/liquids (Take a sip after every 2-3 bites), Sitting upright, Remain sitting upright for 30 minutes after PO intake and Minimize/decrease distractions. GI Consult: Esophageal retention of pudding during MBSS, which cleared w/ liquid wash. Decreased UES opening/duration. Trace retention of barium above a small CP bar.) As no further visits have been scheduled the patient is discharged. Please see reports for complete details. Thank you for allowing me to participate in the care of this patient
== END 2024-11-05 19:00 | disposition home or self-care (01) ==
LOC: SP 12:32
PROVIDERS: PCP Family Medicine Geriatric Medicine; Referring Provider Family Medicine Geriatric Medicine; Visit Provider Family Medicine Geriatric Medicine
DX: R13.10 Dysphagia, unspecified (principal)
CPT/HCPCS: 92610

== ENCOUNTER → 2024-12-26 | Outpatient (CLI) | payer MEDICARE, SELFPAY | END | disposition home or self-care (01) | LOC: RAD 12:57 | PROVIDERS: PCP Family Medicine Geriatric Medicine; Referring Provider Family Medicine Geriatric Medicine; Visit Provider Family Medicine Geriatric Medicine | DX: R13.10 Dysphagia, unspecified (principal) | CPT/HCPCS: 74230 ==

== ENCOUNTER → 2024-12-28 | Outpatient (CLI) | payer MEDICARE, SELFPAY ==
--- NOTE | 2024-12-27 08:34 | SP.MBSS_ITS ---
Modified Barium Swallow Patient Information Study Date: 12/26/24 Study Time: 13:00 Direct Billable Minutes: 96 Total Minutes procedure & reportin Diagnosis: Dysphagia R13.10 Referring Physician: Kirt Devi Chi Reason for Referral: Assess swallow function, assess risk for aspiration, and determine recommendations for least restrictive diet textures and compensatory strategies to improve safety of swallow. Medical History: Pt participated in outpatient Bedside Swallow Evaluation (BSE) 11/05/2024 due to patient reports of swallowing difficulty. During BSE, she reported the following: She has eliminated peas, corn, baby nieto beans, lettuce and nuts from her diet. Pills, particularly one small one, won't always go down until 2-3 drinks later. She reported a feeling of food sticking at the base of the throat. She has intermittent coughing during eating but occasionally while not eating. Prior MBSS 10/15/2025 revealing mild oropharyngeal dysphagia w/ recommendations for the following diet and strategies: regular/soft, avoid hard/crunchy/chewy textures...thin liquids...-small bites -small sips -slow rate of intake -swallow 2x for every bite -consider effortful re-swallows...-sitting upright in bed and/or chair w/ hips flexed at a 90 degrees for all food/liquid/medication intake -remain sitting upright for 30 minutes after P.O. intake. BSE recommended Regular textures (add moisture to dry foods) / Thin liquids w/ strategies to decrease risk for aspiration (Reduce Distractions, Upright Position at Least 30 Minutes After Meals, Small Sips & Bites when Eating and Multiple Swallows) and repeat MBSS to re-assess swallow function and aspiration risk. Other relevant PMH: Stroke 8 years ago, acid reflux (managed by pantoprazole), hiatal hernia, bleeding ulcer. She has not seen GI in at least 6 years. Current Diet Ordered: Regular textures / Thin liquids Dentition: WNL and Natural Teeth Mental Status: WNL Respiratory Status: Oxygenating on Room Air Penetration-Aspiration Scale Penetration-Aspiration Scale: OBJECTIVE ASSESSMENT OF SWALLOW FUNCTION (QUANTITATIVE ? PER TRIAL): PENETRATION / ASPIRATION SCALE (TAN): 1 = does not enter airway 2 = enters airway/above vocal folds/ejected 3 = enters airway/above vocal folds/not ejected 4 = enters airway/contacts vocal folds/ejected 5 = enters airway/contacts vocal folds/not ejected 6 = enters airway/below vocal folds/ejected 7 = enters airway/below vocal folds/not ejected despite effort 8 = enters airway/below vocal folds/no effort VIDEOFLOROSCOPIC SCALE SCORE (TAN): Grade I = aspiration of material that has penetrated into the laryngeal vestibule, intact cough reflex Grade II = aspiration < 10 % of the bolus, intact cough reflex Grade III = aspiration of < 10 % of the bolus, reduced cough reflex or aspiration of > 10 % of the bolus, intact cough reflex Grade IV = aspiration of > 10 % of the bolus, reduced cough reflex Penetration-Aspiration Scale Score Thin Liquid via teaspoon: Result: 1= does not enter airway Thin Liquid via teaspoon Trial 2: Result: 1= does not enter airway Thin Liquid via large single sip: cup: Result: 1= does not enter airway Thin Liquid via sequential sips: cup: Result: 2= enter airway/above vocal folds/ejected Poca Thick Liquid via small single sip: cup: Result: 1= does not enter airway Pudding via teaspoon: Result: 1= does not enter airway Comment: Esophageal screen - Complete clearance. Thin Liquid via single sip: straw: Result: 1= does not enter airway Comment: Esophageal screen - Liquid wash effectively cleared retention of pudding in the lower esophagus. 1/2 Cookie: Result: 1= does not enter airway Comment: Esophageal screen - Complete clearance. Barium Tablet with Water: Result: 1= does not enter airway Comment: Esophageal screen - Complete clearance. Oral Phase Labial Seal: Interlabial escape, no progression to anterior lip Tongue Control During Bolus Hold: Posterior escape of greater than half of bolus Bolus Preparation/Mastication: Slow prolonged chewing/mashing with complete recollection Bolus Transport/Lingual Motion: Slowed tongue motion Oral Residue: Residue collection on oral structures Pharyngeal Phase Initiation of Pharyngeal Swallow: Bolus head in pyriforms Soft Palate Elevation: Trace column of contrast/air between soft palate and pharyngeal wall Laryngeal Elevation: Comp. Superior move thyroid cart w/comp. apprx arytenoid cart-epig pet Anterior Hyoid Excursion: Partial anterior movement Epiglottic Movement: Partial inversion Laryngeal Vestibule Closure at Height of Swallow: Incomplete; narrow column of air/contrast in laryngeal vestibule (trace laryngeal penetration 1X) Pharyngeal Stripping Wave: Present - diminished Pharyngoesophageal Segment Opening: Parital distension and partial duration; parital obstruction of flow Tongue Base Retraction: Narrow column of contrast between tongue base & post. pharyngeal wall Pharyngeal Residue: Collection of residue within or on pharyngeal structures Esophageal Phase Esophageal Clearance: Esophageal retention Diagnosis/Impression Diagnosis: Mild oropharyngeal dysphagia R13.12 Impression: Small anterior bony protrusion at C6. The oral phase is marked by... -Posterior loss of liquids to the pharynx prior to swallow onset with sequential thin. -Slowed tongue motion for A-P transport evident w/ pudding and cookie trials. -Slowed, but complete mastication of cookie. -Piecemeal deglutition of pudding and cookie. The pharyngeal phase is marked by... -Delayed swallow onset. -Trace-mild pharyngeal residues due to decreased TB retraction and pharyngeal stripping wave. -During the study, the patient demonstrated overall good airway closure despite decreased anterior hyoid excursion and partial epiglottic inversion with only trace laryngeal penetration of sequential thin liquids that fully ejected. No aspiration. The esophageal phase is marked by... -Trace retention of barium in the UES above a small CP bar, but this did not appear to greatly impact bolus clearance. -Retention of pudding in the lower esophagus, which fully cleared when provided a thin liquid wash. Recommendations Diet: Regular Textures (Moisten dry textures) and Thin Liquids Compensatory Strategies: Small Bites, Small Sips, Slow Rate, Alternate bites/solids and sips/liquids (Take a sip after every 2-3 bites), Sitting upright, Remain sitting upright for 30 minutes after PO intake and Minimize/decrease distractions Recommend Repeat Modified Barium Swallow: No Need for Skilled Speech Therapy Services: Yes Comment: -Train the patient in use of strategies to facilitate safe po intake. -Ongoing assessment of diet tolerance of recommended textures. -Train the patient in oropharyngeal exercise program (lingual resistance for bolus control, Cici for TB retraction, Eileen for swallow onset, Effortful for pharyngeal contraction. Recommended Referrals: GI Consult (Pt has upcoming GI appointment. LEADERSHIP DEVELOPMENT MANAGER faxed this MBSS to her hogshead stripper, Dr. Bacon. Esophageal retention of pudding during MBSS, which cleared w/ liquid wash. Decreased UES opening/duration. Trace retention of barium above a small CP bar.) Education Completed: 1. Described result of evaluation., 2. Pt understands evaluation & agrees with goals and treatment plan., 4. Family/caregivers u nderstand evaluation & agree w/ goals & tx plan. and 7. Pt requires further education on strategies & risks. Status Active ST Patient: Active Contact Information [facility] Speech Therapy:: Tawnya Ragland M.A. CCC-LEADERSHIP DEVELOPMENT MANAGER? Speech-Language Pathologist?? [facility] [address] [address]? [email or web address]?? [phone]
--- NOTE | 2024-12-28 08:56 | RAD_ITS ---
EXAM: Air-contrast esophagram barium swallow. CLINICAL HISTORY: Dysphagia. COMPARISON: None TECHNIQUE: The patient ingested barium. Multiple images of the esophagus were obtained. The patient swallowed a 12 mm tablet the barium. 45 seconds fluoroscopy. 3.43 mGy. FINDINGS: The patient ingested barium. No evidence of esophageal obstruction. No evidence of mass lesion. There is evidence of a small sliding hiatal hernia. The patient ingested a 12 mm tablet the barium. There is transitory trapping of the tablet at the gastroesophageal junction. RAD/Esophagus Dual Contrast IMPRESSION: Small sliding hiatal hernia without gastroesophageal reflux. Transitory trapping of the swallowed 12 mm tablet the barium at the gastroesoph ageal junction. Reading [facility]
== END | disposition home or self-care (01) ==
LOC: RAD 08:54
PROVIDERS: PCP Family Medicine Geriatric Medicine; Referring Provider Internal Medicine; Visit Provider Internal Medicine
DX: R13.12 Dysphagia, oropharyngeal phase (principal)
CPT/HCPCS: 74221; 92611

== ENCOUNTER → 2025-04-25 | Outpatient (CLI) | payer MEDICARE, SELFPAY ==
[2025-04-25 11:29] LABS: Hematocrit 42.6 % (37-47); Hemoglobin 13.7 g/dL (12.0-15.0); Immature Granulocytes Count 0.020 X10^3/uL (0.0-0.0); Mean Corp Hgb Conc 32.2 g/dL (32-36); Mean Corpuscular Volume 88.0 fL (81-99); Mean Platelet Vol. 10.1 fl (6.2-12.0); NRBC Flagged by Analyzer 0 % (0-5); Platelet Count 259 K/mm3 (150-450); RBC Distribution Width CV 14.4 % (11.6-14.6); RBC Distribution Width SD 46.1 fl (35.1-43.9); Red Blood Count 4.84 M/mm3 (4.2-5.4); White Blood Count 6.5 K/mm3 (4.4-11.0)
[2025-04-25 12:38] LABS: AST(SGOT) 22 U/L (<=31); Alanine Aminotransfer ALT/SGPT 12 U/L (<=34); Albumin, Serum 3.9 g/dL (3.4-4.8); Alkaline Phosphatase 95 U/L (35-104); Anion Gap 11 (5-15); BUN 23 mg/dL (4-19); BUN/Creat Ratio 22.7 RATIO (10-20); Calcium,Total 9.5 mg/dL (7.6-11.0); Carbon Dioxide 24.3 mmol/L (21.0-32.0); Chloride 108 mmol/L (98-108); Cholesterol 172 mg/dL (<=200); Globulin 2.6 g/dL (2.2-4.2); Glucose 72 mg/dL (70-99); Low Density Lipoprotein Calc. 82 mg/dL; Potassium 3.6 mmol/L (3.3-5.1); Triglycerides 92 mg/dL; Very Low Density Lipoprotein 18 mg/dL (5-40); Vitamin D,25 Hydroxy 42.6 ng/mL (30-100); cholesterol:hdl ratio screen 2.42
== END | disposition home or self-care (01) ==
LOC: POLAB3 11:17
PROVIDERS: PCP Family Medicine Geriatric Medicine; Visit Provider Family Medicine Geriatric Medicine
DX: I10 Essential (primary) hypertension (principal); E03.9 Hypothyroidism, unspecified; E55.9 Vitamin D deficiency, unspecified; E78.5 Hyperlipidemia, unspecified
CPT/HCPCS: 36415; 80053; 80061; 82306; 84443; 85025